=== PATIENT | female | born 1945 | race Caucasian/White ===

== ENCOUNTER 2022-04-06 11:52 | Outpatient (CLI) | payer MEDICARE, SELFPAY | END 2022-04-06 11:53 | disposition home or self-care (01) | PROVIDERS: PCP Family Medicine; Visit Provider Family Medicine | DX: Z01.818 Encounter for other preprocedural examination (principal); R03.0 Elevated blood-pressure reading, without diagnosis of hypertension | CPT/HCPCS: 80053; 80061 ==

== ENCOUNTER 2022-05-19 12:30 | Outpatient (RCR) | payer MEDICARE, SELFPAY | END 2022-08-24 23:59 | disposition home or self-care (01) | PROVIDERS: PCP Family Medicine; Visit Provider Orthopaedic Surgery Hand Surgery | DX: M79.643 Pain in unspecified hand (principal); Z51.89 Encounter for other specified aftercare | CPT/HCPCS: 97035; 97110; 97140; 97165; X5282 ==

== ENCOUNTER 2023-02-09 10:32 | Inpatient (IN) | payer MEDICARE, SELFPAY ==
[2023-02-09] VITALS (27 sets, daily range): BP systolic 124–160; BP diastolic 84–119; PULSE 87–142; RESP 18–20; TEMP 36.9–37.5; O2SAT 87–95; BMI 17.9; BMI 17.4
--- NOTE | 2023-02-09 11:11 | ED.GENADULT ---
HPI - General Adult General Chief complaint: Shortness of Breath/Dyspnea Stated complaint: trouble breathing Time Seen by Provider: 02/09/23 11:05 History of Present Illness HPI narrative: Cough, congestion, body aches started . Patient continues to feel short of breath. Negative home covid tests. Taking dayquil with some relief. Everyday smoker . 77-year-old woman presenting to the emergency department with complaint of increasing shortness of breath, particularly exertional. She has done negative home COVID test. Began feeling more short of breath she realized around Christmastime. Very winded with rapid heart rate trying to go upstairs. Did have some body aches beginning around [place] as well. Did not measure fever. Underlying history of nicotine dependence and breast cancer status post left breast mastectomy. Has not been having lower extremity swelling or edema. No chest pain. I note initial EKG with tachycardia might be atrial flutter; this sounds unfamiliar to her historically. Related Data Previous Rx's Medication Instructions Recorded apixaban 5 mg tablet (Eliquis) 5 mg PO BID #180 tabs 02/15/23 metoprolol tartrate 50 mg tablet 75 mg (1.5 x 50 mg) PO BID #180 02/15/23 tabs Allergies Allergy/AdvReac Type Severity Reaction Status Date / Time No Known Drug Allergies Allergy Verified 02/15/23 11:16 Review of Systems Status of ROS: Reports: 6 or more systems reviewed and unremarkable except as noted in History and below [facility] Medical History (Updated 02/19/23 @ 00:01 by Background Daemon) Alcohol abuse (02/2023) ?F10.10 - Alcohol abuse, uncomplicated (ICD-10) Tobacco dependence ?F17.200 - Nicotine dependence, unspecified, uncomplicated (ICD-10) History of malignant neoplasm of breast ?Z85.3 - Personal history of malignant neoplasm of breast (ICD-10) History of cervical dysplasia ?Z87.410 - Personal history of cervical dysplasia (ICD-10) Encounter for pre-operative examination ?Z01.818 - Encounter for other preprocedural examination (ICD-10) Encounter for counseling regarding advance directives (02/12/18) ?Z71.89 - Other specified counseling (ICD-10) Breast cancer ?C50.919 - Malignant neoplasm of unspecified site of unspecified female breast (ICD-10) Surgical History (Updated 02/15/23 @ 12:23 by Esha Diaz MD) H/O total hip arthroplasty ?Z96.649 - Presence of unspecified artificial hip joint (ICD-10) H/O bilateral breast implants (~2000) ?Z98.82 - Breast implant status (ICD-10) History of total hysterectomy with bilateral salpingo-oophorectomy (BSO) (~1998) ?Z90.710 - Acquired absence of both cervix and uterus (ICD-10) ?Z90.722 - Acquired absence of ovaries, 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) ?Z90.79 - Acquired absence of other genital organ(s) (ICD-10) History of total right hip replacement (~2006) ?Z96.641 - Presence of right artificial hip joint (ICD-10) History of total left hip replacement (12/13/16) ?Z96.642 - Presence of left artificial hip joint (ICD-10) H/O left mastectomy (1999) ?Z90.12 - Acquired absence of left breast and nipple (ICD-10) Family History (Updated 02/15/23 @ 12:24 by Esha Diaz MD) Brother Skin cancer Son Diabetes Social History (Updated 02/15/23 @ 12:25 by Esha Diaz MD) Narrative: , retired from [employer], 2 adult children Does not exercise Ex-smoker quit a week ago, over 25 pack years Drinks 10 drinks a week, was advised to cut down What is your current living situation?: I presently have a place to live Problems where you live: no known problems Problems where you live details: N/A In the past 12 months, utilities in danger of being shut off: no In past 12 months, lack of transportation kept you from medical appts, meetings, work, or getting things needed for daily living: no In the past 12 mos, have been you worried that your food would run out before you had money to buy more?: never true In the past 12 mos, the food you bought just didn't last and you didn't have money to buy more?: never true Smoking Status: Current every day smoker What tobacco products do you use: cigarettes Smoking packs per day: 1 Smoking cigarettes per day: 20.0 How often do you have a drink containing alcohol: 2-3 times a week Alcohol type: hard liquor How many standard drinks containing alcohol do you have on a typical day: 1 or 2 AUDIT-C Alcohol total score: 3 Non-prescribed substance use: denies use Caffeine: Yes How often does anyone, including family, friends and others, physically hurt you: never How often does anyone, including family, friends and others, insult or talk down to you: never How often does anyone, including family, friends and others, threaten you with harm: never How often does anyone, including family, friends and others, scream or curse at you: never service: No Exam Narrative: Exam Narrative: Pleasant. Seems little tired. Small stature. Skin is warm and dry. Well-perfused peripherally. Lower extremities are without edema. Is moving all extremities without difficulty/with good strength. Oropharynx is hyperemic. Sticky. Lungs with good air movement. There is end-expiratory rhonchi throughout the right back/chest. Heart is tachycardic generally appears to be in regular rhythm with some ectopic beats. Abdomen is flat soft nontender. Const: Vital Signs, click to edit/add: Vital Signs - 24 hr 02/09/23 10:50 02/09/23 11:05 02/09/23 12:16 Temperature 99.5 F Pulse Rate 142 H 136 H Pulse Rate [Pulse Oximeter] 124 H Respiratory Rate 18 Blood Pressure Blood Pressure [Ri ght Upper Arm] 150/97 H Pulse Oximetry 90 87 L 92 Oxygen Delivery Me thod Room Air 02/09/23 12:17 02/09/23 12:30 02/09/23 12:45 Temperature Pulse Rate 130 H 132 H 126 H Pulse Rate [Pulse Oximeter] Respiratory Rate Blood Pressure 155/119 H Blood Pressure [Ri ght Upper Arm] Pulse Oximetry 95 93 89 Oxygen Delivery Me thod 02/09/23 13:00 02/09/23 13:13 02/09/23 13:14 Temperature Pulse Rate 119 H 128 H 123 H Pulse Rate [Pulse Oximeter] Respiratory Rate Blood Pressure 160/102 H Blood Pressure [Ri ght Upper Arm] Pulse Oximetry 92 93 92 Oxygen Delivery Wi thod 02/09/23 13:15 02/09/23 13:32 02/09/23 13:45 Temperature Pulse Rate 126 H 126 H 126 H Pulse Rate [Pulse Oximeter] Respiratory Rate Blood Pressure Blood Pressure [Ri ght Upper Arm] Pulse Oximetry 92 91 94 Oxygen Delivery Me thod 02/09/23 14:00 02/09/23 14:01 Temperature Pulse Rate 96 110 H Pulse Rate [Pulse Oximeter] Respiratory Rate Blood Pressure 145/95 H Blood Pressure [Ri ght Upper Arm] Pulse Oximetry 93 93 Oxygen Delivery Me thod Documenting provider has reviewed patient's vital signs: yes Course Vital Signs Vital signs: Initial Vital Signs Temperature 99.5 F 02/09/23 10:50 Temperature Source Temporal Artery Scan 02/09/23 10:50 Pulse Rate 124 H 02/09/23 10:50 Pulse Rhythm Irregular 02/09/23 10:50 Respiratory Rate 18 02/09/23 10:50 Blood Pressure 150/97 H 02/09/23 10:50 Blood Pressure Mean 114 H 02/09/23 10:50 Blood Pressure Position Sitting 02/09/23 10:50 Pulse Oximetry 90 02/09/23 10:50 Oxygen Delivery Method Room Air 02/09/23 10:50 Vital Signs Temperature 99.5 F 02/09/23 10:50 Pulse Rate 124 H 02/09/23 10:50 Respiratory Rate 18 02/09/23 10:50 Blood Pressure 150/97 H 02/09/23 10:50 Pulse Oximetry 90 02/09/23 10:50 Oxygen Delivery Method Room Air 02/09/23 10:50 Temperature 98.2 F 02/11/23 07:00 Pulse Rate 100 02/11/23 07:00 Respiratory Rate 18 02/11/23 07:00 Blood Pressure 119/87 02/11/23 07:00 Pulse Oximetry 93 02/11/23 07:00 Oxygen Delivery Method Room Air 02/11/23 07:00 Medications Administered Medications: Discontinued Medications Generic Name Dose Route Start Last Admin Trade Name Freq PRN Reason Stop Dose Admin Albuterol 2.5 mg 02/09/23 17:00 02/11/23 08:41 Albuterol Sulfate 2.5 Mg/3 Ml Vial.Neb NEB 2.5 mg Q4H WILBER Administration Apixaban 5 mg 02/09/23 17:00 02/11/23 08:41 Apixaban 5 Mg Tablet PO 5 mg BID WILBER Administration Azithromycin 500 mg 02/09/23 14:22 02/09/23 15:00 Azithromycin 250 Mg Tablet PO 02/09/23 14:23 500 mg ONCE ONE Administration Azithromycin 250 mg 02/10/23 14:00 02/10/23 13:59 Azithromycin 250 Mg Tablet PO 02/13/23 14:01 250 mg Q24H WILBER Administration Sodium Chloride 1,000 mls @ 1,000 mls/hr 02/09/23 11:22 02/09/23 13:40 0.9 % Sodium Chloride 1000 Ml IV 02/09/23 12:21 Infused .Q1H ONE Infusion Potassium Chloride 10 meq in 100 mls @ 100 mls/hr 02/09/23 14:00 02/09/23 14:54 Potassium Chloride IVPB 02/09/23 14:59 100 mls/hr ONCE ONE Administration Magnesium Sulfate 2 gm in 50 mls @ 25 mls/hr 02/09/23 13:45 02/09/23 14:32 Magnesium Iv IVPB 02/09/23 15:44 25 mls/hr ONCE ONE Administration Ceftriaxone Sodium 1 gm/ 100 mls @ 200 mls/hr 02/09/23 14:22 02/09/23 15:44 Sodium Chloride IVPB 02/09/23 14:23 Infused ONCE ONE Infusion Ceftriaxone Sodium 1 gm/ 100 mls @ 200 mls/hr 02/10/23 14:00 02/10/23 13:59 Sodium Chloride IVPB 200 mls/hr Q24H WILBER Administration Labetalol HCl 5 mg 02/09/23 13:23 02/09/23 13:44 Labetalol Hcl 5 Mg/Ml Inj IVP 02/09/23 13:24 5 mg ONCE ONE Administration Melatonin 3 mg 02/09/23 16:43 02/11/23 00:29 Melatonin 3 Mg Tablet PO 3 mg HS PRN Administration Metoprolol Tartrate 50 mg 02/09/23 21:00 02/10/23 08:45 Metoprolol Tartrate 50 Mg Tablet PO 50 mg BID WILBER Administration Metoprolol Tartrate 50 mg 02/09/23 16:43 02/09/23 17:05 Metoprolol Tartrate 50 Mg Tablet PO 02/09/23 16:44 50 mg ONCE ONE Administration Metoprolol Tartrate 75 mg 02/10/23 21:00 02/11/23 08:41 Metoprolol Tartrate 50 Mg Tablet PO 75 mg BID WILBER Administration Metoprolol Tartrate 25 mg 02/10/23 10:43 02/10/23 12:49 Metoprolol Tartrate 25 Mg Tablet PO 02/10/23 10:44 25 mg ONCE ONE Administration Nicotine 1 patch 02/09/23 18:15 02/10/23 18:04 Nicotine 21 Mg Patch TRANSDERMA Not Given Q24H WILBER Potassium Bicarbonate 25 meq 02/09/23 13:42 02/09/23 14:19 Potassium Bicarb 25 Meq Effervescent Tab PO 02/09/23 13:43 25 meq ONCE ONE Administration Potassium Chloride 40 meq 02/09/23 18:02 02/09/23 18:33 Potassium Chloride 10 Meq Capsule Er PO 02/09/23 18:03 40 meq ONCE ONE Administration Sodium Chloride 5 ml 02/09/23 21:00 02/11/23 08:41 Sodium Chloride 0.9 % (Flush) 10 Ml Syringe IVF 5 ml BID WILBER Administration Medical Decision Making MDM Narrative Medical decision making narrative: Vitals with tachycardia on arrival. EKG looks to be quite regular to maybe atrial flutter but I think that is more artifact. Second EKG showing some suggestion of P waves. Rate of 130s to 140s. I would suspect that this tachycardia represents underlying infectious etiology, pneumonia, given reported history. Will collect labs. Monitor on monitoring coordinator. List smoking and cancer history, pulmonary embolus certainly in differential as cause of this tachycardia as well. IV fluids. Following IV fluids have reviewed CT imaging of the chest. Looks to have multifocal pneumonia on the right side. INDICATION: New flutter, hypoxia. TECHNIQUE: CT chest PE was acquired with 95 cc Isovue 370 IV contrast. COMPARISON: None. FINDINGS: Heart and vasculature: Contrast opacification of the pulmonary arterial tree is adequate. No sign of pulmonary embolism. Heart size is normal. Thoracic aorta and pulmonary artery are normal in caliber. Lungs and pleura: Right lower lobe basilar mucous plugging with right basilar patchy ground-glass opacities. Left lower lobe collapse. No pleural effusions, pleural thickening, or pneumothorax. Lymph nodes/mediastinum: No mediastinal, hilar, or axillary adenopathy. Thyroid gland is unremarkable. Chest wall: No masses. Bilateral breast implants. Upper abdomen: No acute findings. Bones: Degenerative changes. T8 intraosseous hemangioma. IMPRESSION: 1. No evidence of pulmonary embolism. 2. Right lower lobe postobstructive pneumonia. 3. Left lower lobe collapse, which may be secondary to mucous plugging however underlying lesion is not excluded. Recommend short-term follow-up chest CT for re-evaluation. EKG after 5 mg labetalol and IV fluids able to obtain a slower rate around 100 and looks to be in atrial fibrillation. This would be of uncertain duration. Labs with mildly elevated white count. More notable for hypokalemia of 2.8 magnesium of 1.5 CRP of 20. Moderately elevated D-dimer as well. Replaced with oral potassium and IV bump of potassium. Also initiated on magnesium replacement Initiating antibiotic treatment with Rocephin and azithromycin With this constellation symptoms/diagnoses would be prudent to admit for further monitoring cares and evaluation. I have discussed with hospitalist. Medical Records Medical records reviewed: Yes I reviewed the patient's medical records Lab Data Lab results reviewed: Yes I reviewed the patient's lab results Labs: Lab Results 02/09/23 02/09/23 02/09/23 Range/Units 05:15 12:09 17:04 WBC 12.59 H (4.50-11.00) K/uL RBC 4.27 (4.00-5.20) m/uL Hgb 15.0 (12.0-16.0) gm/dL Hct 43.4 (33.0-51.0) % MCV 102 H (80-100) fL MCH 35 H (26-34) pg MCHC 35 (32-36) gm/dL RDW Coeff of Nacho 12.5 (11.5-15.5) % Plt Count 358 (140-440) K/uL Neut % (Auto) 88.9 H (42.0-72.0) % Lymph % (Auto) 3.2 L (20-44) % Villalba % (Auto) 7.3 (0.0-11.0) % Eos % (Auto) 0.0 (0.0-7.0) % Baso % (Auto) 0.2 (0.0-3.0) % Neut # (Auto) 11.20 H (1.7-7.0) K/uL Lymph # (Auto) 0.40 L (0.90-2.90) K/uL Villalba # (Auto) 0.90 (0.00-0.90) K/UL Eos # (Auto) 0.00 (0.00-0.50) K/uL Baso # (Auto) 0.00 (0.00-0.30) K/uL Abs Immat Gran (auto) 0.10 (0.00-0.30) K/uL Imm/Tot Granulo (auto) 0.4 % D-Dimer Quant (PE/DVT) 1.73 H (0.00-0.50) ug/ml VBG pH (7.32-7.43) VBG pCO2 (40-50) mmHG VBG pO2 (25-47) mmHG VBG HCO3 (21-28) mmol/L Sodium 131 L (135-149) mmol/L Potassium 2.8 L* 3.4 L (3.6-5.1) mmol/L Chloride 91 L (96-114) mmol/L Carbon Dioxide 33 H (20-32) mmol/L Anion Gap 7 (7-15) mEq/L BUN 7 (7-30) mg/dL Creatinine 0.3 L (0.5-1.5) mg/dL Estimated Creat Clear 43.51 Estimated GFR 111 ml/min Glucose 117 H (60-115) mg/dL Lactate 1.3 (0.5-1.9) mmol/L Calcium 9.3 (8.4-10.6) mg/dL Phosphorus (2.5-4.5) mg/dL Magnesium 1.5 (1.5-2.6) mg/dL Total Bilirubin 1.8 H (0.1-1.5) mg/dL Direct Bilirubin 0.5 (0.0-0.5) mg/dL AST 16 (12-35) U/L ALT 9 (4-35) U/L Alkaline Phosphatase 81 (40-150) U/L Troponin I < 0.01 L (0.01-0.04) ng/mL C-Reactive Protein 20.1 H (0.5-1.0) mg/dL NT-Pro-B Natriuret Pep 2430 pg/mL Total Protein 7.3 (6.0-8.3) g/dL Albumin 3.9 (3.3-5.0) g/dL Lipase 54 (23-300) U/L Procalcitonin (<0.50) ng/mL TSH 0.644 (0.270-4.20) uIU/mL Stl C. diff Tox B Gene Negative (Negative) Stl C. diff 027-NAP1-BI PRESUMPTIVE NEGATIVE (Negative) Ethyl Alcohol < 0.01 L (0.01-0.03) % SARS-CoV-2 (PCR) Negative SARS-CoV-2 (Negative) Influenza Type A (PCR) Negative PCR FLU A (Negative) Influenza Type B (PCR) Negative PCR FLU B (Negative) RSV (PCR) Negative PCR RSV (Negative) Lab Acknowledgement 02/09/23 02/10/23 Range/Units 18:59 05:44 WBC 7.85 (4.50-11.00) K/uL RBC 3.41 L (4.00-5.20) m/uL Hgb 12.4 (12.0-16.0) gm/dL Hct 35.1 (33.0-51.0) % MCV 103 H (80-100) fL MCH 36 H (26-34) pg MCHC 35 (32-36) gm/dL RDW Coeff of Nacho (11.5-15.5) % Plt Count 342 (140-440) K/uL Neut % (Auto) (42.0-72.0) % Lymph % (Auto) (20-44) % Villalba % (Auto) (0.0-11.0) % Eos % (Auto) (0.0-7.0) % Baso % (Auto) (0.0-3.0) % Neut # (Auto) (1.7-7.0) K/uL Lymph # (Auto) (0.90-2.90) K/uL [place] # (Auto) (0.00-0.90) K/UL Eos # (Auto) (0.00-0.50) K/uL Baso # (Auto) (0.00-0.30) K/uL Abs Immat Gran (auto) (0.00-0.30) K/uL Imm/Tot Granulo (auto) % D-Dimer Quant (PE/DVT) (0.00-0.50) ug/ml VBG pH 7.499 H (7.32-7.43) VBG pCO2 39 L (40-50) mmHG VBG pO2 56.3 H (25-47) mmHG VBG HCO3 31 H (21-28) mmol/L Sodium 128 L (135-149) mmol/L Potassium 3.6 (3.6-5.1) mmol/L Chloride 94 L (96-114) mmol/L Carbon Dioxide 27 (20-32) mmol/L Anion Gap 7 (7-15) mEq/L BUN 6 L (7-30) mg/dL Creatinine 0.3 L (0.5-1.5) mg/dL Estimated Creat Clear 41.73 Estimated GFR 111 ml/min Glucose 107 (60-115) mg/dL Lactate 0.9 (0.5-1.9) mmol/L Calcium 8.5 (8.4-10.6) mg/dL Phosphorus 2.9 (2.5-4.5) mg/dL Magnesium 1.6 (1.5-2.6) mg/dL Total Bilirubin (0.1-1.5) mg/dL Direct Bilirubin (0.0-0.5) mg/dL AST (12-35) U/L ALT (4-35) U/L Alkaline Phosphatase (40-150) U/L Troponin I < 0.01 L (0.01-0.04) ng/mL C-Reactive Protein 17.9 H (0.5-1.0) mg/dL NT-Pro-B Natriuret Pep 4190 pg/mL Total Protein (6.0-8.3) g/dL Albumin (3.3-5.0) g/dL Lipase (23-300) U/L Procalcitonin 0.36 (<0.50) ng/mL TSH (0.270-4.20) uIU/mL Stl C. diff Tox B Gene (Negative) Stl C. diff 027-NAP1-BI (Negative) Ethyl Alcohol (0.01-0.03) % SARS-CoV-2 (PCR) (Negative) Influenza Type A (PCR) (Negative) Influenza Type B (PCR) (Negative) RSV (PCR) (Negative) Lab Acknowledgement Test Added Critical Care Time Critical Care Time Critical Care Time: Yes Attestation: The patient required my highest level preparedness to intervene emergently and I personally spent this critical care time directly and personally managing the patient. This critical care time included: Obtaining a history; Examining the patient; Pulse oximetry; Ordering and reviewing of studies; Arranging urgent treatment with development of a management plan; Evaluation of patients response to treatment; Frequent reassessment discussions with other providers. This critical care time was performed to assess and manage the high probability of imminent life-threatening deterioration that could result in multiorgan failure. It was exclusive of separate billable procedures and treating other patients and teaching time. Total Critical Care Time in Minutes: 60 Discharge Plan Discharge Clinical Impression: Atrial fibrillation with RVR Pneumonia Qualifiers: Pneumonia type: due to unspecified organism Laterality: right Lung location: lower lobe of lung Qualified Code(s): J18.9 - Pneumonia, unspecified organism Patient Disposition: Admitted As Observation Condition: Stable Activity Level: No Restrictions Discharge Diet: Regular
[2023-02-09] MEDS: 0.9 % SODIUM CHLORIDE 1000 ml 1,000 ML IV (12:10)
[2023-02-09 12:24] LABS: Basophils Percent Auto 0.2 % (0.0-3.0); Hematocrit 43.4 % (33.0-51.0); Immature Granulocytes Pct Auto 0.4 %; Lymphocytes Percent Auto 3.2 % (20-44); Mean Corpuscular HGB Conc 35 gm/dL (32-36); Mean Corpuscular Hemoglobin 35 pg (26-34); Mean Corpuscular Volume 102 fL (80-100); Monocytes Percent Auto 7.3 % (0.0-11.0); Neutrophils Percent Auto 88.9 % (42.0-72.0); Platelet Count* 358 K/uL (140-440); RDW Coefficient of Variation % 12.5 % (11.5-15.5); Red Blood Count 4.27 m/uL (4.00-5.20); White Blood Count* 12.59 K/uL (4.50-11.00)
[2023-02-09 12:41] LABS: Chloride* 91 mmol/L (96-114); Sodium* 131 mmol/L (135-149)
[2023-02-09 12:44] LABS: Creatinine* 0.3 mg/dL (0.5-1.5); Est. Creatinine Clearance* 43.51; Estimated Glomerular Filt Rate 111 ml/min
[2023-02-09 12:45] LABS: Albumin* 3.9 g/dL (3.3-5.0); Anion Gap 7 mEq/L (7-15); Blood Urea Nitrogen* 7 mg/dL (7-30); Calcium* 9.3 mg/dL (8.4-10.6); Carbon Dioxide* 33 mmol/L (20-32); D Dimer Quantitative* 1.73 ug/ml (0.00-0.50); Glucose* 117 mg/dL (60-115)
[2023-02-09 12:46] LABS: Slide Review Reflex No
[2023-02-09 12:48] LABS: Alanine Aminotransferase* 9 U/L (4-35); Alkaline Phosphatase* 81 U/L (40-150); Aspartate Amino Transferase* 16 U/L (12-35); Bilirubin Direct* 0.5 mg/dL (0.0-0.5); Bilirubin Total* 1.8 mg/dL (0.1-1.5); Magnesium* 1.5 mg/dL (1.5-2.6); Total Protein* 7.3 g/dL (6.0-8.3)
[2023-02-09 12:54] LABS: Ethanol* < 0.01 % (0.01-0.03); NT Pro B Type NatriureticPept* 2430 pg/mL
[2023-02-09 12:55] LABS: Potassium* 2.8 mmol/L (3.6-5.1)
--- NOTE | 2023-02-09 12:58 | CRLHL7_ITS ---
For Patients: As a result of the Century Cures Act, medical imaging exams and procedure reports are released immediately into your electronic medical record. You may view this report before your referring provider. If you have questions, please contact your health care provider. INDICATION: New flutter, hypoxia. TECHNIQUE: CT chest PE was acquired with 95 cc Isovue 370 IV contrast. COMPARISON: None. FINDINGS: Heart and vasculature: Contrast opacification of the pulmonary arterial tree is adequate. No sign of pulmonary embolism. Heart size is normal. Thoracic aorta and pulmonary artery are normal in caliber. Lungs and pleura: Right lower lobe basilar mucous plugging with right basilar patchy ground-glass opacities. Left lower lobe collapse. No pleural effusions, pleural thickening, or pneumothorax. Lymph nodes/mediastinum: No mediastinal, hilar, or axillary adenopathy. Thyroid gland is unremarkable. Chest wall: No masses. Bilateral breast implants. Upper abdomen: No acute findings. Bones: Degenerative changes. T8 intraosseous hemangioma. IMPRESSION: 1. No evidence of pulmonary embolism. 2. Right lower lobe postobstructive pneumonia. 3. Left lower lobe collapse, which may be secondary to mucous plugging however underlying lesion is not excluded. Recommend short-term follow-up chest CT for re-evaluation. Please note that all CT scans at this facility use dose modulation, iterative reconstruction, and/or weight-based dosing when appropriate to reduce radiation dose to as low as reasonably achievable. Dictated by Oscar Freitas MD @ 02/09/2023 2:39:28 PM (Electronically Signed)
[2023-02-09 13:06] LABS: C Reactive Protein* 20.1 mg/dL (0.5-1.0)
[2023-02-09 13:15] LABS: PCR FLU A Negative PCR FLU A (Negative); PCR FLU B Negative PCR FLU B (Negative); PCR RSV Negative PCR RSV (Negative)
[2023-02-09 13:16] LABS: SARS PCR* Negative SARS-CoV-2 (Negative)
[2023-02-09 13:30] LABS: Thyroid Stimulating Hormone* 0.644 uIU/mL (0.270-4.20)
[2023-02-09] MEDS: LABETALOL HCL 5 MG/ML inj IVP (13:44)
[2023-02-09] MEDS: POTASSIUM BICARB 25 MEQ EFFERVESCENT TAB PO (14:19)
[2023-02-09] MEDS: MAGNESIUM IV 2 GM/50 ML PIGGYBACK IVPB (14:32)
[2023-02-09] MEDS: POTASSIUM CHLORIDE 10 MEQ/100 ML PIGGYBACK 100 MEQ IVPB (14:54)
[2023-02-09] MEDS: AZITHROMYCIN 250 MG TABLET 500 MG PO (15:00)
[2023-02-09] MEDS: cefTRIAXone 1 GM in 0.9 % SODIUM CHLORIDE Mini-bag 100 ML IVPB (15:07)
--- NOTE | 2023-02-09 16:19 | ED.NURSE ---
Report to MARIVEL Tadeo. Patient accepted to [id number].
[2023-02-09] MEDS: ALBUTEROL SULFATE 2.5 MG/3 ML VIAL.NEB NEB ×2 (17:05→21:51)
[2023-02-09] MEDS: METOPROLOL TARTRATE 50 MG TABLET PO ×2 (17:05→21:50)
[2023-02-09 17:08] LABS: Lactate* 1.3 mmol/L (0.5-1.9)
[2023-02-09] MEDS: APIXABAN 5 MG TABLET PO (17:08)
[2023-02-09 17:29] LABS: Potassium* 3.4 mmol/L (3.6-5.1)
--- NOTE | 2023-02-09 17:43 | PM.IMHP1 ---
Hospitalist- H&P: HPI History of Present Illness Date Seen: 02/09/23 Chief complaint: trouble breathing Narrative: Monae Leach is a 77 year old woman presents to the emergency department with 2 week history of increasing dyspnea with exertion, weakness, decreased oral intake, decreased appetite. Unclear she had a fever. She never measured a fever. May have felt feverish at times during this time frame. Continues to smoke roughly 1 pack per day of cigarettes. Denies chest heaviness, pressure, tightness, or pain. Denies syncope or near-syncope. Denies nausea or vomiting. Acknowledges decreased oral intake, subsiding on chicken noodle soup and drinking water. Has decreased her cigarette smoking. Has decreased her alcohol consumption. Denies chest fluttering or palpitations. Notes maybe increased bilateral lower extremity edema. Review of Systems Status of ROS: Reports: 10 or more systems reviewed and unremarkable except as noted in History and below [facility] Medical History (Updated 02/09/23 @ 17:59 by Sagar Valera MD) Alcohol abuse ?F10.10 - Alcohol abuse, uncomplicated (ICD-10) Tobacco dependence ?F17.200 - Nicotine dependence, unspecified, uncomplicated (ICD-10) History of malignant neoplasm of breast ?Z85.3 - Personal history of malignant neoplasm of breast (ICD-10) History of cervical dysplasia ?Z87.410 - Personal history of cervical dysplasia (ICD-10) Encounter for pre-operative examination ?Z01.818 - Encounter for other preprocedural examination (ICD-10) Encounter for counseling regarding advance directives (02/12/18) ?Z71.89 - Other specified counseling (ICD-10) Breast cancer ?C50.919 - Malignant neoplasm of unspecified site of unspecified female breast (ICD-10) Surgical History H/O total hip arthroplasty ?Z96.649 - Presence of unspecified artificial hip joint (ICD-10) History of mastectomy ?Z90.10 - Acquired absence of unspecified breast and nipple (ICD-10) H/O bilateral breast implants ?Z98.82 - Breast implant status (ICD-10) History of total hysterectomy with bilateral salpingo-oophorectomy (BSO) (~1998) ?Z90.710 - Acquired absence of both cervix and uterus (ICD-10) ?Z90.722 - Acquired absence of ovaries, 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) ?Z90.79 - Acquired absence of other genital organ(s) (ICD-10) History of total right hip replacement (~2006) ?Z96.641 - Presence of right artificial hip joint (ICD-10) History of total left hip replacement (12/13/16) ?Z96.642 - Presence of left artificial hip joint (ICD-10) H/O left mastectomy ?Z90.12 - Acquired absence of left breast and nipple (ICD-10) Family History Family/Other Diabetes Social History Narrative: Smoker 1ppd Does not use illicit drugs Alcohol ingestion, 1-4 drinks/week Smoking Status: Current every day smoker What tobacco products do you use: cigarettes Smoking packs per day: 1 Smoking cigarettes per day: 20.0 How often do you have a drink containing alcohol: 2-3 times a week AUDIT-C Alcohol total score: 3 Non-prescribed substance use: denies use Meds Home Medications and Allergies Home Medications Medication Instructions Recorded Confirmed Type No Known Home Medications 02/09/23 02/09/23 History Allergies Allergy/AdvReac Type Severity Reaction Status Date / Time No Known Drug Allergies Allergy Verified 02/09/23 10:50 Exam Narrative: Exam Narrative: Examined patient in the emergency department. Appears comfortable. Vision and hearing are grossly normal. Alert and oriented to self, place, time, situation. From the, articulate, cooperative. Tympanic membranes normal bilaterally. Midline nasal septum. Dentition in fair repair. Dry buccal mucosa. Midline trachea. Neck supple. No head neck lymphadenopathy. Lungs with decreased breath sounds in both bases with rales in the right compared to the left. No wheezing or rhonchi. Chest wall excursions are full. Heart tones with chaotic rhythm, normal S1-S2, soft systolic murmur. No gallop or rub. PMI not laterally displaced. Abdomen is thin, active bowel sounds, soft, nontender. Trace edema pretibially bilaterally otherwise extremities unremarkable. Palpable pulses upper and lower extremities. Moves all 4 extremities. Cranial nerves 3-12 grossly normal. No tremor, asterixis, or ataxia. Skin is intact. Const: Vital Signs, click to edit/add: Vital Signs - 24 hr 02/09/23 10:50 02/09/23 11:05 02/09/23 12:16 Temperature 99.5 F Pulse Rate 142 H 136 H Pulse Rate [Left P ulse Oximeter] Pulse Rate [Pulse Oximeter] 124 H Respiratory Rate 18 Blood Pressure Blood Pressure [Ri ght Arm] Blood Pressure [Ri ght Upper Arm] 150/97 H Pulse Oximetry 90 87 L [facility] 02/09/23 12:17 02/09/23 12:30 02/09/23 12:45 Temperature Pulse Rate 130 H 132 H 126 H Pulse Rate [Left P ulse Oximeter] Pulse Rate [Pulse Oximeter] Respiratory Rate Blood Pressure 155/119 H Blood Pressure [Ri ght Arm] Blood Pressure [Ri ght Upper Arm] Pulse Oximetry 95 93 89 [facility] 02/09/23 13:00 02/09/23 13:13 02/09/23 13:14 Temperature Pulse Rate 119 H 128 H 123 H Pulse Rate [Left P ulse Oximeter] Pulse Rate [Pulse Oximeter] Respiratory Rate Blood Pressure 160/102 H Blood Pressure [Ri ght Arm] Blood Pressure [Ri ght Upper Arm] Pulse Oximetry 92 93 92 [facility] 02/09/23 13:15 02/09/23 13:32 02/09/23 13:45 Temperature Pulse Rate 126 H 126 H 126 H Pulse Rate [Left P ulse Oximeter] Pulse Rate [Pulse Oximeter] Respiratory Rate Blood Pressure Blood Pressure [Ri ght Arm] Blood Pressure [Ri ght Upper Arm] Pulse Oximetry 92 91 94 [facility] 02/09/23 14:00 02/09/23 14:01 02/09/23 14:02 Temperature Pulse Rate 96 110 H 110 H Pulse Rate [Left P ulse Oximeter] Pulse Rate [Pulse Oximeter] Respiratory Rate Blood Pressure 145/95 H Blood Pressure [Ri ght Arm] Blood Pressure [Ri ght Upper Arm] Pulse Oximetry 93 93 92 [facility] 02/09/23 14:15 02/09/23 14:30 02/09/23 14:31 Temperature Pulse Rate 109 H 111 H 106 H Pulse Rate [Left P ulse Oximeter] Pulse Rate [Pulse Oximeter] Respiratory Rate Blood Pressure 151/98 H Blood Pressure [Ri ght Arm] Blood Pressure [Ri ght Upper Arm] Pulse Oximetry 89 93 89 Oxygen Delivery Me thod 02/09/23 14:45 02/09/23 15:00 02/09/23 15:02 Temperature Pulse Rate 102 H 112 H Pulse Rate [Left P ulse Oximeter] Pulse Rate [Pulse Oximeter] Respiratory Rate Blood Pressure 125/95 H Blood Pressure [Ri ght Arm] Blood Pressure [Ri ght Upper Arm] Pulse Oximetry 88 90 Oxygen Delivery Me thod 02/09/23 15:31 02/09/23 16:44 Temperature 99.2 F Pulse Rate Pulse Rate [Left P ulse Oximeter] 119 H Pulse Rate [Pulse Oximeter] Respiratory Rate 18 Blood Pressure 132/98 H Blood Pressure [Ri ght Arm] 145/95 H Blood Pressure [Ri ght Upper Arm] Pulse Oximetry 90 Oxygen Delivery Me thod Room Air Hospitalist - H&P: Result Labs Labs: Short CBC 02/09/23 Range/Units 12:09 WBC 12.59 H (4.50-11.00) K/uL Hgb 15.0 (12.0-16.0) gm/dL Hct 43.4 (33.0-51.0) % Plt Count 358 (140-440) K/uL BMP 02/09/23 12:09 Sodium 131 L Potassium 2.8 L* Chloride 91 L Carbon Dioxide 33 H BUN 7 Creatinine 0.3 L Glucose 117 H Calcium 9.3 Liver Function 02/09/23 Range/Units 12:09 Total Bilirubin 1.8 H (0.1-1.5) mg/dL Direct Bilirubin 0.5 (0.0-0.5) mg/dL AST 16 (12-35) U/L ALT 9 (4-35) U/L Alkaline Phosphatase 81 (40-150) U/L Albumin 3.9 (3.3-5.0) g/dL Imaging CT scan of chest with angiogram: Attestation: I have reviewed the pertinent imaging results. Radiologist's impression: IMPRESSION: 1. No evidence of pulmonary embolism. 2. Right lower lobe postobstructive pneumonia. 3. Left lower lobe collapse, which may be secondary to mucous plugging however underlying lesion is not excluded. Recommend short-term follow-up chest CT for re-evaluation. Assessment and Plan Assessment and plan (1) Atrial fibrillation with RVR: Problem comment: - uncertain of onset. - rate control with beta-nancy, schedule oral, as needed oral and IV - initiate apixaban anticoagulation therapy - monitor on telemetry, EKG, serial troponin i levels Status: Acute (2) Pneumonia: Problem comment: - most likely community-acquired - ceftriaxone IV and azithromycin orally - monitor for O2 needs Status: Acute (3) Pulmonary atelectasis: Problem comment: - repeat chest x-ray in the morning Status: Acute (4) Mucus plugging of bronchi: Problem comment: - scheduled albuterol nebs Status: Acute (5) Tobacco dependence: Problem comment: - Has smoked 1 pack per cigarettes daily for several decades. Status: Acute (6) Alcohol abuse: Problem comment: - Acknowledges drinking 2-3 brandies every 3-4 days - monitor for possible alcohol withdrawal and employ CIWA protocol if warranted Status: Acute Plan 1. Reviewed impression with patient. Answered her questions. 2. Patient agreeable with above stated plans and recommendations.
[2023-02-09 17:50] LABS: Troponin I* < 0.01 ng/mL (0.01-0.04)
[2023-02-09] MEDS: POTASSIUM CHLORIDE 10 MEQ CAPSULE ER 40 MEQ PO (18:33)
[2023-02-09 19:08] LABS: Lipase* 54 U/L (23-300)
--- NOTE | 2023-02-09 20:17 | RESP.RT ---
Patient on room air SATing 93%. Initial Neb done and appears to be breathing better.
[2023-02-09] MEDS: SODIUM CHLORIDE 0.9 % (FLUSH) 10 ML SYRINGE 5 ML IVF (21:53)
[2023-02-10] VITALS (12 sets, daily range): BP systolic 99–142; BP diastolic 65–92; PULSE 86–103; RESP 16–24; TEMP 36.6–36.9; O2SAT 92–95
[2023-02-10] MEDS: MELATONIN 3 MG TABLET PO (01:30)
[2023-02-10] MEDS: ALBUTEROL SULFATE 2.5 MG/3 ML VIAL.NEB NEB ×6 (01:31→21:39)
--- NOTE | 2023-02-10 06:29 | PC.NURSE ---
Patient pleasant, alert and oriented. Ambulates independently in room. PRN Melatonin given as patient could not sleep. Slept in recliner for some of the night. O2 sats 88-93% on RA. Denied pain.?
[2023-02-10 06:31] LABS: Lactate* 0.9 mmol/L (0.5-1.9); PCO2 VBG 39 mmHG (40-50); PO2 VBG 56.3 mmHG (25-47); pH VBG 7.499 (7.32-7.43)
[2023-02-10 06:35] LABS: HCO3 VBG 31 mmol/L (21-28)
[2023-02-10 06:41] LABS: C.Difficile Negative (Negative); CDIFFEPI 027 PRESUMPTIVE NEGATIVE (Negative)
[2023-02-10 06:49] LABS: Chloride* 94 mmol/L (96-114); Sodium* 128 mmol/L (135-149)
[2023-02-10 06:50] LABS: Potassium* 3.6 mmol/L (3.6-5.1)
[2023-02-10 06:52] LABS: Creatinine* 0.3 mg/dL (0.5-1.5); Est. Creatinine Clearance* 41.73; Estimated Glomerular Filt Rate 111 ml/min
[2023-02-10 06:53] LABS: Anion Gap 7 mEq/L (7-15); Blood Urea Nitrogen* 6 mg/dL (7-30); Carbon Dioxide* 27 mmol/L (20-32); Glucose* 107 mg/dL (60-115)
[2023-02-10 06:54] LABS: Calcium* 8.5 mg/dL (8.4-10.6); Magnesium* 1.6 mg/dL (1.5-2.6); Phosphorus* 2.9 mg/dL (2.5-4.5)
[2023-02-10 06:59] LABS: Hematocrit 35.1 % (33.0-51.0); Hemoglobin* 12.4 gm/dL (12.0-16.0); Mean Corpuscular HGB Conc 35 gm/dL (32-36); Mean Corpuscular Hemoglobin 36 pg (26-34); Mean Corpuscular Volume 103 fL (80-100); Platelet Count* 342 K/uL (140-440); Red Blood Count 3.41 m/uL (4.00-5.20); White Blood Count* 7.85 K/uL (4.50-11.00)
--- NOTE | 2023-02-10 07:00 | CRLHL7_ITS ---
For Patients: As a result of the Cures Act, medical imaging exams and procedure reports are released immediately into your electronic medical record. You may view this report before your referring provider. If you have questions, please contact your health care provider. INDICATION: Follow-up abnormal prior imaging COMPARISON: Portions of a CT dated February 09, 2023 TECHNIQUE: Two views of the chest were acquired FINDINGS: TUBES AND LINES: None. HEART AND MEDIASTINUM: Enlarged heart unchanged appearance. LUNGS AND PLEURAL SPACES: Dense opacity at the left base representing left lower lobe atelectasis/collapse similar to the prior study. Right lower lobe consolidation likely representing pneumonia or aspiration.Similar to the prior exam. OSSEOUS STRUCTURES: Age-appropriate appearance. No acute focal finding. IMPRESSION: Dense opacity at the left base representing left lower lobe atelectasis/collapse, unchanged. Right lower lobe consolidation likely representing pneumonia, unchanged. Unchanged enlargement of the heart. Dictated by Jesus Palencia MD @ 02/10/2023 7:10:29 AM (Electronically Signed)
[2023-02-10 07:09] LABS: Procalcitonin* 0.36 ng/mL (<0.50)
[2023-02-10 07:27] LABS: Slide Review Reflex No
[2023-02-10 07:31] LABS: C Reactive Protein* 17.9 mg/dL (0.5-1.0); NT Pro B Type NatriureticPept* 4190 pg/mL; Troponin I* < 0.01 ng/mL (0.01-0.04)
[2023-02-10] MEDS: APIXABAN 5 MG TABLET PO ×2 (08:45→21:38)
[2023-02-10] MEDS: METOPROLOL TARTRATE 50 MG TABLET PO (08:45)
[2023-02-10] MEDS: SODIUM CHLORIDE 0.9 % (FLUSH) 10 ML SYRINGE 5 ML IVF ×2 (10:17→21:40)
[2023-02-10] MEDS: METOPROLOL TARTRATE 25 MG TABLET PO (12:49)
[2023-02-10] MEDS: cefTRIAXone 1 GM in 0.9 % SODIUM CHLORIDE Mini-bag 100 ML IVPB (13:59)
[2023-02-10] MEDS: AZITHROMYCIN 250 MG TABLET PO (13:59)
--- NOTE | 2023-02-10 17:12 | PM.IMPN1 ---
Progress Note: A&P Assessment and plan (1) Atrial fibrillation with RVR: Problem details: - uncertain of onset. - rate control with beta-nancy, schedule oral, as needed oral and IV - initiated apixaban anticoagulation therapy 02/09 - 02/10: Resting HR is about 103. I have increased oral metoprolol dose. Continue to monitor on telemetry. Goal resting heart rate is less than 100, goal active heart rate is less than 110. Status: Acute (2) Pneumonia: Problem details: - CTA from yesterday notes right lower lobe postobstructive pneumonia. Will need short-term outpatient follow-up for repeat chest imaging. - continue ceftriaxone IV and azithromycin orally - monitor for O2 needs Status: Acute (3) Pulmonary atelectasis: Problem details: - unchanged, concerning for possibility of underlying lesion, will need outpatient short-term follow-up chest imaging Status: Acute (4) Alcohol abuse: Problem details: - Acknowledges drinking 2-3 brandies every 3-4 days - monitor for possible alcohol withdrawal and employ CIWA protocol if warranted - I have recommended abstinence in setting of need for anticoagulation for atrial fibrillation. Patient demonstrated understanding. Status: Acute (5) Tobacco dependence: Problem details: - Has smoked 1 pack per cigarettes daily for several decades. Status: Acute (6) Mucus plugging of bronchi: Problem details: - scheduled albuterol nebs Status: Acute Subjective Time Seen by Provider: 11:33 Date Seen: 02/10/23 Interval history: Monae is feeling better today. Dyspnea is improving. She has no complaints. Exam Narrative: Exam Narrative: General: No acute distress. Awake, alert, oriented x3. No pallor. No jaundice. Oropharynx: Clear. Mucous membranes moist. Cardiovascular: Irregularly irregular, mildly tachycardic. No murmurs, gallops, or rubs. Respiratory: Coarse in the right base of the lungs without crackles or wheezes. Abdomen: Bowel sounds present. Soft, nondistended, nontender. Extremities: No pedal edema. Const: Vital Signs, click to edit/add: Vital Signs - 24 hr 02/09/23 18:03 02/09/23 19:00 02/09/23 22:09 Temperature 98.7 F 98.4 F Pulse Rate Pulse Rate [Left P ulse Oximeter] 101 H 101 H Respiratory Rate 20 20 20 Blood Pressure [Ri ght Arm] 124/84 131/95 H Pulse Oximetry 90 93 93 Oxygen Delivery Me thod Room Air Room Air Room Air 02/09/23 23:00 02/09/23 23:00 02/10/23 02:37 Temperature 98.5 F Pulse Rate 87 Pulse Rate [Left P ulse Oximeter] 97 Respiratory Rate 20 24 Blood Pressure [Ri ght Arm] 142/92 H Pulse Oximetry 93 92 Oxygen Delivery Me thod Room Air Room Air 02/10/23 03:30 02/10/23 07:38 02/10/23 07:39 Temperature 98.4 F Pulse Rate Pulse Rate [Left P ulse Oximeter] 92 Respiratory Rate 18 18 Blood Pressure [Ri ght Arm] 120/77 119/73 Pulse Oximetry 93 93 Oxygen Delivery Me thod Room Air Room Air 02/10/23 07:59 02/10/23 11:00 02/10/23 12:48 Temperature 98.5 F Pulse Rate 103 H Pulse Rate [Left P ulse Oximeter] 86 98 Respiratory Rate 16 Blood Pressure [Ri ght Arm] 99/65 111/69 Pulse Oximetry 92 Oxygen Delivery Nc thod Room Air 02/10/23 14:52 02/10/23 15:38 02/10/23 16:07 Temperature 98.5 F Pulse Rate 88 Pulse Rate [Left P ulse Oximeter] 93 Respiratory Rate 16 Blood Pressure [Ri ght Arm] 116/78 Pulse Oximetry 94 94 Oxygen Delivery Me thod Room Air Room Air Labs Labs: Laboratory Results - last 24 hr 02/09/23 02/09/23 02/09/23 05:15 17:04 18:59 WBC RBC Hgb Hct MCV MCH MCHC Plt Count VBG pH VBG pCO2 VBG pO2 VBG HCO3 Sodium Potassium 3.4 L Chloride Carbon Dioxide Anion Gap BUN Creatinine Estimated Creat Clear Estimated GFR Glucose Lactate 1.3 Calcium Phosphorus Magnesium Troponin I < 0.01 L C-Reactive Protein NT-Pro-B Natriuret Pep Lipase 54 Procalcitonin Stl C. diff Tox B Gene Negative Stl C. diff [id number] PRESUMPTIVE NEGATIVE Lab Acknowledgement Test Added 02/10/23 05:44 WBC 7.85 RBC 3.41 L Hgb 12.4 Hct 35.1 MCV 103 H MCH 36 H MCHC 35 Plt Count 342 VBG pH 7.499 H VBG pCO2 39 L VBG pO2 56.3 H VBG HCO3 31 H Sodium 128 L Potassium 3.6 Chloride 94 L Carbon Dioxide 27 Anion Gap 7 BUN 6 L Creatinine 0.3 L Estimated Creat Clear 41.73 Estimated GFR 111 Glucose 107 Lactate 0.9 Calcium 8.5 Phosphorus 2.9 Magnesium 1.6 Troponin I < 0.01 L C-Reactive Protein 17.9 H NT-Pro-B Natriuret Pep 4190 Lipase Procalcitonin 0.36 Stl C. diff Tox B Gene Stl C. diff [id number] Lab Acknowledgement
--- NOTE | 2023-02-10 17:54 | PC.NURSE ---
Shift Summary: Patient pleasant and cooperative. Up independently in room. Vitals stable and WNL. Patient urine appears concentrated this evening, encouraged fluid intake. Vitals stable and WNL. o2 sat >90% on RA. Using incentive spirometer independently. Appetite better today.
[2023-02-10] MEDS: METOPROLOL TARTRATE 50 MG TABLET 75 MG PO (21:38)
[2023-02-11] MEDS: ALBUTEROL SULFATE 2.5 MG/3 ML VIAL.NEB NEB ×3 (00:29→08:41)
[2023-02-11] MEDS: MELATONIN 3 MG TABLET PO (00:29)
[2023-02-11 03:00] VITALS: BP 127/88; PULSE 87; RESP 19; TEMP 37.2; O2SAT 92
[2023-02-11 07:00] VITALS: BP 119/87; PULSE 100; PULSE 90; RESP 16; RESP 18; TEMP 36.8; O2SAT 91; O2SAT 93
--- NOTE | 2023-02-11 07:48 | PC.NURSE ---
Patient pleasant, alert and oriented. Ambulates independently in room. PRN Melatonin given for sleep. Denies discomfort.
[2023-02-11] MEDS: SODIUM CHLORIDE 0.9 % (FLUSH) 10 ML SYRINGE 5 ML IVF (08:41)
[2023-02-11] MEDS: METOPROLOL TARTRATE 50 MG TABLET 75 MG PO (08:41)
[2023-02-11] MEDS: APIXABAN 5 MG TABLET PO (08:41)
[2023-02-11 09:00] LABS: Chloride* 92 mmol/L (96-114); Sodium* 128 mmol/L (135-149)
[2023-02-11 09:01] LABS: Potassium* 3.3 mmol/L (3.6-5.1)
[2023-02-11 09:03] LABS: Creatinine* 0.3 mg/dL (0.5-1.5); Estimated Glomerular Filt Rate 111 ml/min
[2023-02-11 09:04] LABS: Anion Gap 7 mEq/L (7-15); Blood Urea Nitrogen* 6 mg/dL (7-30); Calcium* 8.5 mg/dL (8.4-10.6); Carbon Dioxide* 29 mmol/L (20-32); Glucose* 105 mg/dL (60-115)
--- NOTE | 2023-02-11 13:24 | PM.DS1 ---
DS: Providers Provider Time Seen by Provider: 13:01 Date Seen: 02/11/23 Date of admission: 02/10/23 17:19 Primary care physician: Dot Braswell DO Admitting Clinician: Sagar Valera MD Consults: 02/09/23 16:43 Consult to Nutrition [CONS] Routine Comment: Reason for consult:: Miscellaneous Consult to Respiratory Therapy [CONS] Routine Comment: Reason(s) for RT Consult:: Consult Comment: mucous plugging; Aerobika device use Attending Physician on discharge: Kassy Munguia MD Date of Discharge: 02/11/23 DS: Diagnosis Discharge Diagnosis (1) Atrial fibrillation with RVR: Status: Acute Problem details: - uncertain of onset. - rate control with beta-nancy, schedule oral, as needed oral and IV - initiated apixaban anticoagulation therapy 02/09 - 02/10: Resting HR is about 103. I have increased oral metoprolol dose. Continue to monitor on telemetry. Goal resting heart rate is less than 100, goal active heart rate is less than 110. - 02/11: Heart rate consistently under 100 even with activity for the last 24 hours. Discharge home on oral metoprolol. Have patient follow-up the primary care provider this week. Discussed risks of bleeding with anticoagulation therapy. Discussed options of apixaban verses warfarin verses Xarelto. Patient would like to continue with apixaban for now. Patient's is on apixaban and she is concerned about the cost. Discussed potential side effects of beta blockers and risk of orthostatic symptoms. (2) Pneumonia: Status: Acute Problem details: - CTA from yesterday notes right lower lobe postobstructive pneumonia. Will need short-term outpatient follow-up for repeat chest imaging. - has been on ceftriaxone IV and azithromycin orally - Transitioned to cefpodoxime orally and azithromycin orally for discharge for a total of 5 days of antibiotics. (3) Mucus plugging of bronchi: Status: Acute Problem details: - underlying lesion is not excluded and will need short-term follow-up chest CT for re-evaluation (4) Alcohol abuse: Status: Acute Problem details: - Acknowledges drinking 2-3 brandies every 3-4 days - monitor for possible alcohol withdrawal and employ CIWA protocol if warranted - I have recommended abstinence in setting of need for anticoagulation for atrial fibrillation. Patient demonstrated understanding. (5) Pulmonary atelectasis: Status: Acute Problem details: - unchanged, concerning for possibility of underlying lesion, will need outpatient short-term follow-up chest imaging (6) Tobacco dependence: Status: Acute Problem details: - Has smoked 1 pack per cigarettes daily for several decades. I discussed tobacco cessation with patient. She noted that she had not had any cigarettes for 7 days and is hopeful to go home and quit cold turkey. Declined any prescriptions for tobacco cessation. DS: Summary Hospital Course Hospital Course: PCP: Will need short-term follow-up chest CT for re-evaluation due to mucus plugging with underlying lesion not excluded and possible postobstructive pneumonia. This is a 77-year-old female with history of tobacco dependence and alcohol use who presented with 2 week history of worsening dyspnea on exertion, weakness, decreased oral intake, decreased appetite. Upon presentation she was found to have atrial flutter with a rapid ventricular rate in the 140s. This was a new finding. Additionally she was noted to have pneumonia, underlying lesion cannot be excluded and there was possible postobstructive pneumonia. She was started on pulmonary toilet with nebs, ceftriaxone and azithromycin, and given metoprolol for rate control. She was also started on apixaban. She did well with these therapies and heart rate came under control under 100. She is discharged home today in improved and stable condition. I recommended smoking and alcohol cessation and patient demonstrated understanding and desire to quit. She declined any help with the these. Time spent discussing smoking cessation with patient: 3 to 10 minutes Time Spent with Patient Time attestation: Total time spent providing and/or coordinating discharge services: Exam Narrative: Exam Narrative: General: No acute distress. Awake, alert, oriented x3. No pallor. No jaundice. Oropharynx: Clear. Mucous membranes moist. Cardiovascular: Irregularly irregular. No murmurs, gallops, or rubs. Respiratory: Clear to auscultation bilaterally, no crackles or wheezes. Abdomen: Bowel sounds present. Soft, nondistended, nontender. Extremities: No pedal edema. Const: Vital Signs, click to edit/add: Vital Signs - 24 hr 02/10/23 14:52 02/10/23 15:38 02/10/23 16:07 Temperature 98.5 F Pulse Rate 88 Pulse Rate [Left P ulse Oximeter] 93 Respiratory Rate 16 Blood Pressure [Ri ght Arm] 116/78 Pulse Oximetry 94 94 Oxygen Delivery Me thod Room Air Room Air 02/10/23 19:00 02/10/23 23:00 02/10/23 23:00 Temperature 97.8 F 98.5 F Pulse Rate Pulse Rate [Left P ulse Oximeter] 96 89 Respiratory Rate 16 16 16 Blood Pressure [Ri ght Arm] 112/78 117/81 Pulse Oximetry 95 94 94 Oxygen Delivery Me thod Room Air Room Air Room Air 02/10/23 23:00 02/11/23 03:00 02/11/23 07:00 Temperature 98.9 F Pulse Rate 87 100 Pulse Rate [Left P ulse Oximeter] 87 Respiratory Rate 19 Blood Pressure [Ri ght Arm] 127/88 Pulse Oximetry 92 Oxygen Delivery Me thod Room Air 02/11/23 07:00 02/11/23 07:00 02/11/23 07:00 Temperature 98.2 F Pulse Rate Pulse Rate [Left P ulse Oximeter] 90 100 Respiratory Rate 16 18 Blood Pressure [Ri ght Arm] 119/87 Pulse Oximetry 91 93 Oxygen Delivery Me thod Room Air Room Air DS: Data Data Completed and Pending Completed studies during hospitalization: 02/09/2023 EKG: Atrial flutter with variable AV block with premature aberrantly conducted complexes, heart rate 140 beats per minute. Left axis deviation. Incomplete right bundle-branch block. Anteroseptal infarct, age undetermined. ST and T-wave abnormality, consider lateral ischemia. 02/09/2023 EKG: Atrial fibrillation with rapid ventricular response with premature ventricular or aberrantly conducted complexes. 102 beats per minute. Left axis deviation. Incomplete right bundle-branch block. Anterior lateral infarct, age undetermined. Prolonged QT. 02/09/2023 EKG: AFib with RVR. 102 beats per minute. Incomplete right bundle-branch block. Left anterior fascicular block. Anterolateral infarct, age undetermined. Ordering Physician: Deondre Rivera M.D. Date of Service: 02/09/23 Procedure(s): CT angio chest Accession Number(s): [id number] cc: Deondre Rivera M.D.; Dot Braswell D.O.~ For Patients: As a result of the Cures Act, medical imaging exams and procedure reports are released immediately into your electronic medical record. You may view this report before your referring provider. If you have questions, please contact your health care provider. INDICATION: New flutter, hypoxia. TECHNIQUE: CT chest PE was acquired with 95 cc Isovue 370 IV contrast. COMPARISON: None. FINDINGS: Heart and vasculature: Contrast opacification of the pulmonary arterial tree is adequate. No sign of pulmonary embolism. Heart size is normal. Thoracic aorta and pulmonary artery are normal in caliber. Lungs and pleura: Right lower lobe basilar mucous plugging with right basilar patchy ground-glass opacities. Left lower lobe collapse. No pleural effusions, pleural thickening, or pneumothorax. Lymph nodes/mediastinum: No mediastinal, hilar, or axillary adenopathy. Thyroid gland is unremarkable. Chest wall: No masses. Bilateral breast implants. Upper abdomen: No acute findings. Bones: Degenerative changes. T8 intraosseous hemangioma. IMPRESSION: 1. No evidence of pulmonary embolism. 2. Right lower lobe postobstructive pneumonia. 3. Left lower lobe collapse, which may be secondary to mucous plugging however underlying lesion is not excluded. Recommend short-term follow-up chest CT for re-evaluation. Please note that all CT scans at this facility use dose modulation, iterative reconstruction, and/or weight-based dosing when appropriate to reduce radiation dose to as low as reasonably achievable. Dictated by Oscar Freitas MD @ 02/09/2023 2:39:28 PM (Electronically Signed) Ordering Physician: Sagar Valera M.D. Date of Service: 02/10/23 Procedure(s): XR chest 2V Accession Number(s): [id number] cc: Sagar Valera M.D.; Dot Braswell D.O.~ For Patients: As a result of the 21st Century Cures Act, medical imaging exams and procedure reports are released immediately into your electronic medical record. You may view this report before your referring provider. If you have questions, please contact your health care provider. INDICATION: Follow-up abnormal prior imaging COMPARISON: Portions of a CT dated February 09, 2023 TECHNIQUE: Two views of the chest were acquired FINDINGS: TUBES AND LINES: None. HEART AND MEDIASTINUM: Enlarged heart unchanged appearance. LUNGS AND PLEURAL SPACES: Dense opacity at the left base representing left lower lobe atelectasis/collapse similar to the prior study. Right lower lobe consolidation likely representing pneumonia or aspiration.Similar to the prior exam. OSSEOUS STRUCTURES: Age-appropriate appearance. No acute focal finding. IMPRESSION: Dense opacity at the left base representing left lower lobe atelectasis/collapse, unchanged. Right lower lobe consolidation likely representing pneumonia, unchanged. Unchanged enlargement of the heart. Dictated by Jesus Palencia MD @ 02/10/2023 7:10:29 AM (Electronically Signed) Labs on day of discharge: Labs from last 24 hours 02/11/23 08:32 Sodium 128 L Potassium 3.3 L Chloride 92 L Carbon Dioxide 29 Anion Gap 7 BUN 6 L Creatinine 0.3 L Estimated Creat Clear 42.40 Estimated GFR 111 Glucose 105 Calcium 8.5 Discharge Plan Discharge Disposition: Home, Self-Care Date of Admission: 02/10/23 17:19 Attending Provider on Discharge: Kassy Munguia Primary Care Provider: Dot Braswell Condition: Stable Anticipated Discharge Date/Time: 02/11/23 13:18 Discharge Medications: New azithromycin 250 mg Tablet 250 mg PO Q24H Qty: 2 0RF Eliquis 5 mg Tablet 5 mg PO BID Qty: 60 0RF metoprolol tartrate 50 mg Tablet 75 mg PO BID Qty: 60 0RF cefpodoxime 200 mg tablet 200 mg PO BID Qty: 4 0RF Rx Instructions: must administer with a meal/food Start 1/8 am Discharge Orders: Discharge Order (Routine); Ordered 02/11/23 Ordered By: Kassy Munguia Patient Education: Metoprolol (By mouth), Azithromycin (By mouth), Cefpodoxime Proxetil (By mouth), Apixaban (By mouth), A-fib (Atrial Fibrillation) (DC), How to Stop Smoking (DC), Bacterial Pneumonia (DC) Additional Instructions: Wishes to establish PCP in [place] ([facility]) - 5-7 days Activity Level: No Restrictions Discharge Diet: Regular Follow Up Appointments: Dot Braswell DO [Primary Care Provider] - Forms: [facility] Info Instructions
--- NOTE | 2023-02-11 15:24 | PC.NURSE ---
Discharge Note: The patient discharged home this afternoon. All discharge information was given to the patient. IV was removed. Shwetha ORTA assisted with the discharge. Koki ORTA BSN
== END 2023-02-11 15:00 | disposition home or self-care (01) | DRG 308 ==
LOC: ED 15:36 → MEDSURG 16:22
PROVIDERS: Family Medicine; Admitting Provider Internal Medicine; Emergency Provider Family Medicine; PCP Family Medicine; Visit Provider Internal Medicine
DX: I48.20 Chronic atrial fibrillation, unspecified (principal); J18.9 Pneumonia, unspecified organism; J98.11 Atelectasis; Z68.1 Body mass index [BMI] 19.9 or less, adult; F17.210 Nicotine dependence, cigarettes, uncomplicated; J98.09 Other diseases of bronchus, not elsewhere classified; I48.92 Unspecified atrial flutter; F10.10 Alcohol abuse, uncomplicated; E87.6 Hypokalemia; Z85.3 Personal history of malignant neoplasm of breast; Z98.82 Breast implant status; Z96.641 Presence of right artificial hip joint; Z96.642 Presence of left artificial hip joint; R63.0 Anorexia; R53.1 Weakness; J98.4 Other disorders of lung
CPT/HCPCS: 36415; 71046; 71275; 80048; 80076; 82077; 82803; 83605; 83690; 83735; 83880; 84100; 84132; 84145; 84443; 84484; 85025; 85027; 85379; 86140; 87493; 87631; 93005; 93306; 94640; 94761; 99284; 99291; G0378; A9270; J0696; J3475; J3480; J7030; Q9967

== ENCOUNTER 2023-02-15 11:50 | Outpatient (CLI) | payer MEDICARE, SELFPAY | END 2023-02-15 11:51 | disposition home or self-care (01) | PROVIDERS: PCP Family Medicine; Visit Provider Family Medicine | DX: Z00.00 Encounter for general adult medical examination without abnormal findings (principal); E87.1 Hypo-osmolality and hyponatremia; F10.10 Alcohol abuse, uncomplicated; J18.9 Pneumonia, unspecified organism; I48.91 Unspecified atrial fibrillation; Z13.6 Encounter for screening for cardiovascular disorders | CPT/HCPCS: 80053; 80061; 84443 ==

== ENCOUNTER 2023-03-13 09:56 | Outpatient (CLI) | payer MEDICARE, SELFPAY ==
--- NOTE | 2023-03-13 10:00 | CRLHL7_ITS ---
For Patients: As a result of the Century Cures Act, medical imaging exams and procedure reports are released immediately into your electronic medical record. You may view this report before your referring provider. If you have questions, please contact your health care provider. INDICATION: Pneumonia TECHNIQUE: CT chest without contrast. COMPARISON: 02/09/[address] FINDINGS: Lungs and pleura: Improvement in left lower lobe consolidation with aeration of majority of the left lower lobe. Residual segmental and subsegmental consolidation. Significantly improved right lower lobe findings with resolution of most of the nodules. Majority of the bronchi are now patent. Mild residual bronchial wall thickening and interlobular septal thickening. Irregular focal consolidation in the right lower lobe image 79 series 3. Tiny bilateral pleural effusions. Heart and vasculature: Cardiomegaly. Dilated ascending aorta measuring 4 cm. Pulmonary artery also mildly dilated. Coronary artery calcifications. Lymph nodes/mediastinum: No mediastinal, hilar, or axillary adenopathy. Thyroid gland is normal. Chest wall: Bilateral breast implants. Upper abdomen: Normal. Bones: T8 hemangioma as before. IMPRESSION: Interval improvement in the bilateral lower lobe pneumonia with residual consolidation in both lung bases. Follow-up in 2-3 months recommended. Please note that all CT scans at this facility use dose modulation, iterative reconstruction, and/or weight-based dosing when appropriate to reduce radiation dose to as low as reasonably achievable. Dictated by Kris Rose MD @ 03/14/2023 11:35:48 AM (Electronically Signed)
== END 2023-03-13 09:57 | disposition home or self-care (01) ==
LOC: CT 09:57
PROVIDERS: PCP Family Medicine; Visit Provider Family Medicine
DX: J18.9 Pneumonia, unspecified organism (principal)
CPT/HCPCS: 71250

== ENCOUNTER 2023-03-21 06:04 | Day surgery (SDC) | payer MEDICARE, SELFPAY ==
[2023-03-21 06:15] VITALS: BP 156/95; PULSE 79; RESP 16; TEMP 36.6; O2SAT 97; BMI 17.4
[2023-03-21] MEDS: TETRACAINE 0.5% OPHTH 1 DROP EYE-LEFT ×2 (06:15→06:20)
[2023-03-21] MEDS: KETOROLAC OPHTH 0.5% 1 DROP EYE-LEFT ×2 (06:15→06:20)
[2023-03-21] MEDS: SODIUM CHLORIDE 0.9 % (FLUSH) 10 ML SYRINGE IVF (06:30)
[2023-03-21] MEDS: TETRACAINE 0.5% OPHTH 2 DROP EYE-LEFT (07:15)
[2023-03-21] MEDS: BALANCED SALT IRRIG SOLN 15 ML EYE-LEFT (07:20)
--- NOTE | 2023-03-21 07:49 | W.ANESCHARGE ---
Anesthesia Charges Start Date/Time Anesthesia Start Date: 03/21/23 Anesthesia Start Time: 07:11 Stop Date/Time Anesthesia Stop Date: 03/21/23 Anesthesia Stop Time: 07:50
[2023-03-21 07:50] VITALS: BP 154/99; PULSE 86; RESP 16; TEMP 36.3; O2SAT 95
--- NOTE | 2023-03-21 08:20 | SUR.PHASEII ---
The eye drops brought by the patient (Ketorolac and Prednisolone) are examined and I have determined they are labeled by the patient's pharmacy for this patient as prescribed by the surgeon. The bottles are intact, recently obtained and appear to be correct.
--- NOTE | 2023-03-21 08:36 | P.OPTPRC_ITS ---
Procedure Note Date of procedure: 03/21/23 Will [facility] bill your pro fee for this procedure?: Yes Procedure Description: SURGEON: Maria Elena Leary MD PREOPERATIVE DIAGNOSIS: Nuclear sclerotic cataract, left eye. POSTOPERATIVE DIAGNOSIS: Nuclear sclerotic cataract, left eye. NAME OF OPERATION: Phacoemulsification of cataract with posterior chamber intraocular lens implantation in the left eye. ANESTHESIA: Topical. ESTIMATED BLOOD LOSS: Less than 2 cc. COMPLICATIONS: None. PATHOLOGY SPECIMEN: None. INDICATIONS: See consult note for details. The risks, benefits and alternatives of the procedure were explained to the patient, who elected to proceed and signed informed consent to do so. PROCEDURE: The patient was brought to the pre-holding area where the left eye was identified as the operative eye. I placed my initials above this eye. The patient received eye drops consisting of 0.5% tetracaine, 1% tropicamide, 10% phenylephrine, and 0.5% ketorolac. The patient was then brought to the operating room where the left eye was again identified as the operative eye. The eye was prepped with Betadine and draped in the usual sterile ophthalmic fashion. A #15 super-sharp blade was used to create a paracentesis site. 1% non-preserved intracameral lidocaine was injected into the anterior chamber. Endocoat was injected into the anterior chamber. A 2.4 mm keratome was used to create a three-plane self-sealing incision 1 mm anterior to the temporal limbus. A cystotome was used to create an anterior capsular leaflet. The Utrata forceps were used to extend this to form a continuous curvilinear capsulorrhexis. Hydrodissection was performed. The cataract was removed with phacoemulsification using the [id number] technique. The irrigation and aspiration tip was used to remove the remaining cortex. Healon was injected into the capsular bag. An ESTELA ZCB00 intraocular lens of 18.5 diopters was injected into the capsular bag. The irrigation and aspiration tip was used to remove the remaining viscoelastic. Balanced salt solution on a cannula was used to hydrate the wound, and the wound was found to be watertight. The pupil was noted to be round. DISPOSITION: The patient was taken to the recovery room and discharged to home in stable condition. The patient was instructed to call me or go to the emergency department with any sudden change, including dramatic loss of vision, severe pain in the eye or eyebrow region, nausea, or vomiting. The patient will follow up in the clinic tomorrow morning.
--- NOTE | 2023-03-21 10:05 | W.ANESCHARGE ---
Anesthesia Charges Start Date/Time Anesthesia Start Date: 03/21/23 Anesthesia Start Time: 07:11 Stop Date/Time Anesthesia Stop Date: 03/21/23 Anesthesia Stop Time: 07:50 Summary Extremes of Age - Over 70 or under 1: MDA
== END 2023-03-21 08:21 | disposition home or self-care (01) ==
PROVIDERS: PCP Family Medicine; Visit Provider Ophthalmology
PROC: (CPT 66984; principal; 2023-03-21 06:15)
DX: H25.12 Age-related nuclear cataract, left eye (principal)
CPT/HCPCS: 66984; 00142; 99100; A9270; J2250; J3010; V2632

== ENCOUNTER 2023-04-04 06:11 | Day surgery (SDC) | payer MEDICARE, SELFPAY ==
[2023-04-04] MEDS: KETOROLAC OPHTH 0.5% 1 DROP EYE-RIGHT ×2 (06:30→06:35)
[2023-04-04] MEDS: TETRACAINE 0.5% OPHTH 1 DROP EYE-RIGHT ×2 (06:30→06:35)
[2023-04-04 06:33] VITALS: BMI 17.4
[2023-04-04 06:45] VITALS: BP 167/109; PULSE 78; RESP 16; TEMP 36.9; O2SAT 96
[2023-04-04] MEDS: SODIUM CHLORIDE 0.9 % (FLUSH) 10 ML SYRINGE IVF (06:47)
--- NOTE | 2023-04-04 06:47 | SUR.PREOP ---
The eye drops brought by the patient (Ketorolac, Prednisolone, and Ofloxacin) are examined and I have determined they are labeled by the patient's pharmacy for this patient as prescribed by the surgeon. The bottles are intact, recently obtained and appear to be correct.
[2023-04-04] MEDS: BALANCED SALT IRRIG SOLN 15 ML EYE-RIGHT (07:17)
[2023-04-04] MEDS: TETRACAINE 0.5% OPHTH 2 DROP EYE-RIGHT (07:17)
[2023-04-04 07:40] VITALS: BP 147/100; PULSE 76; RESP 16; TEMP 36.9; O2SAT 95
--- NOTE | 2023-04-04 07:43 | W.ANESCHARGE ---
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
--- NOTE | 2023-04-04 07:44 | P.OPTPRC_ITS ---
Procedure Note Date of procedure: 04/04/23 Will [facility] bill your pro fee for this procedure?: Yes Procedure Description: SURGEON: Maria Elena Leary MD PREOPERATIVE DIAGNOSIS: Nuclear sclerotic cataract, right eye. POSTOPERATIVE DIAGNOSIS: Nuclear sclerotic cataract, right eye. NAME OF OPERATION: Phacoemulsification of cataract with posterior chamber intraocular lens implantation in the right eye. ANESTHESIA: Topical. ESTIMATED BLOOD LOSS: Less than 2 cc. COMPLICATIONS: None. PATHOLOGY SPECIMEN: None. INDICATIONS: See consult note for details. The risks, benefits and alternatives of the procedure were explained to the patient, who elected to proceed and signed informed consent to do so. PROCEDURE: The patient was brought to the pre-holding area where the right eye was identified as the operative eye. I placed my initials above this eye. The patient received eye drops consisting of 0.5% tetracaine, 1% tropicamide, 10% phenylephrine, and 0.5% ketorolac. The patient was then brought to the operating room where the right eye was again identified as the operative eye. The eye was prepped with Betadine and draped in the usual sterile ophthalmic fashion. A #15 super-sharp blade was used to create a paracentesis site. 1% non-preserved intracameral lidocaine was injected into the anterior chamber. Endocoat was injected into the anterior chamber. A 2.4 mm keratome was used to create a three-plane self-sealing incision 1 mm anterior to the temporal limbus. A cystotome was used to create an anterior capsular leaflet. The Utrata forceps were used to extend this to form a continuous curvilinear capsulorrhexis. Hydrodissection was performed. The cataract was removed with phacoemulsification using the [id number] technique. The irrigation and aspiration tip was used to remove the remaining cortex. Healon was injected into the capsular bag. An ESTELA ZCB00 intraocular lens of 19.5 diopters was injected into the capsular bag. The irrigation and aspiration tip was used to remove the remaining viscoelastic. Balanced salt solution on a cannula was used to hydrate the wound, and the wound was found to be watertight. The pupil was noted to be round. DISPOSITION: The patient was taken to the recovery room and discharged to home in stable condition. The patient was instructed to call me or go to the emergency department with any sudden change, including dramatic loss of vision, severe pain in the eye or eyebrow region, nausea, or vomiting. The patient will follow up in the clinic tomorrow morning.
--- NOTE | 2023-04-04 10:59 | W.ANESCHARGE ---
Anesthesia Charges Start Date/Time Anesthesia Start Date: 04/04/23 Anesthesia Start Time: 07:08 Stop Date/Time Anesthesia Stop Date: 04/04/23 Anesthesia Stop Time: 07:41 Summary Extremes of Age - Over 70 or under 1: MDA
== END 2023-04-04 08:07 | disposition home or self-care (01) ==
PROVIDERS: PCP Family Medicine; Visit Provider Ophthalmology
PROC: (CPT 66984; principal; 2023-04-04 06:15)
DX: H25.11 Age-related nuclear cataract, right eye (principal)
CPT/HCPCS: 66984; 00142; 99100; A9270; J2250; J3010; V2632

== ENCOUNTER 2023-06-11 10:43 | Outpatient (CLI) | payer MEDICARE, SELFPAY ==
--- NOTE | 2023-06-11 11:00 | CT_ITS ---
Patient: MARIAJOSE LOW Facility:?[facility] Patient ID:?[id number] Site Patient ID:?[id number]. Site :?[id number] Study:?CT-Chest WITHOUT-06/11/2023 11:29:58 AM Ordering Physician:?DR. NAVARRO Final Report: INDICATION: Pneumonia. Three-month follow up. TECHNIQUE: Volumetric helical scanning of the thorax was performed without IV contrast material. Coronal and sagittal reconstructions were obtained. COMPARISON: Chest CT of 03/13/2023 FINDINGS: Previously demonstrated bilateral lower lobe base pneumonias appear to have resolved with atelectasis in the left lower lobe base with left-sided volume loss. No acute infiltrate is demonstrated. There is no significant airway abnormality. No pleural effusion is demonstrated. There is no mediastinal or hilar lymphadenopathy. Postop changes of bilateral mastectomies with reconstruction are again demonstrated. There is unchanged mild cardiomegaly. Calcified coronary arterial plaque is again demonstrated. Images of the upper abdomen are unremarkable. IMPRESSION: 1. Previously demonstrated bilateral lower lobe pneumonias resolved with persistent left lower lobe base atelectasis. 2. Post bilateral mastectomies with reconstruction. 3. Stable mild cardiomegaly. Please note that all CT scans at this facility use dose modulation, iterative reconstruction, and/or weight-based dosing when appropriate to reduce radiation dose to as low as reasonably achievable. Dictated by Jose Jacome MD @ 06/11/2023 4:05:40 PM Signed by:?Jose Jacome MD @06/11/2023 4:05:40 PM (Electronic Signature)
== END 2023-06-11 10:44 | disposition home or self-care (01) ==
LOC: CT 10:44
PROVIDERS: PCP Family Medicine; Visit Provider Family Medicine
DX: J18.9 Pneumonia, unspecified organism (principal); I51.7 Cardiomegaly
CPT/HCPCS: 71250

== ENCOUNTER 2023-06-28 11:30 | Emergency (ER) | payer MEDICARE, SELFPAY ==
[2023-06-28] VITALS (14 sets, daily range): BP systolic 155–166; BP diastolic 96–117; PULSE 70–97; RESP 18–20; TEMP 36.5; O2SAT 92–99; BMI 17.7
--- NOTE | 2023-06-28 11:31 | ED_ITS ---
HPI - General Adult General Time Seen by Provider: 11:31 Date Seen: 06/28/23 Chief complaint: Dizziness/Vertigo Stated complaint: Dizziness Time Seen by Provider: 06/28/23 11:31 Source: patient, RN notes reviewed and old records reviewed Mode of arrival: ambulatory Limitations: no limitations History of Present Illness HPI narrative: This 77yo female is coming in with concern of head pressure, dizziness. She notes that yesterday mid morning she started to note that her head was having pressure behind her eyes and into her temples bilaterally, feels like pressure but does not feel like a headache, not that bad as a headache. She typically doesn't get headaches that frequently. No fevers, chills. She thought it was maybe her sinuses starting to bother her but has no drainage or congestion. With this, she feels dizziness, not like getting up too fast but more like she could pass out. No chest pain, has underlying atrial fibrillation and is anticoagulated. No spinning sensation. Has no visual changes, no spots in vision, no blackening, no double vision. She has maybe felt a bit more short of breath. Maybe will feel slightly imbalanced when first getting up but otherwise no ongoing incoordination. No missed doses of Eliquis. Looking in her records, she was hospitalized in February with hypokalemia, atrial fibrillation with RVR. Anticoagulation was started and rate control was achieved with metoprolol. Her echo during the hospitalization showed reduced function at 39%. She was also found to have pneumonia. She did have a follow- up chest CT which did show resolution. Related Data Previous Rx's ?Medication ?Instructions ?Recorded apixaban 5 mg tablet (Eliquis) 5 mg PO BID #180 tabs 02/15/23 metoprolol tartrate 50 mg tablet 75 mg (1.5 x 50 mg) PO BID #270 05/29/23 tabs Allergies Allergy/AdvReac Type Severity Reaction Status Date / Time No Known Drug Allergies Allergy Verified 06/28/23 11:41 Review of Systems Status of ROS: Reports: 6 or more systems reviewed and unremarkable except as noted in History and below [facility] Medical History Hyponatremia ?E87.1 - Hypo-osmolality and hyponatremia (ICD-10) Atrial fibrillation ?I48.91 - Unspecified atrial fibrillation (ICD-10) Atrial fibrillation with RVR (02/09/23) ?I48.91 - Unspecified atrial fibrillation (ICD-10) Pneumonia (02/2023) ?J18.9 - Pneumonia, unspecified organism (ICD-10) Eczema ?L30.9 - Dermatitis, unspecified (ICD-10) Alcohol abuse (02/2023) ?F10.10 - Alcohol abuse, uncomplicated (ICD-10) Tobacco dependence ?F17.200 - Nicotine dependence, unspecified, uncomplicated (ICD-10) History of malignant neoplasm of breast ?Z85.3 - Personal history of malignant neoplasm of breast (ICD-10) History of cervical dysplasia ?Z87.410 - Personal history of cervical dysplasia (ICD-10) Encounter for pre-operative examination ?Z01.818 - Encounter for other preprocedural examination (ICD-10) Encounter for counseling regarding advance directives (02/12/18) ?Z71.89 - Other specified counseling (ICD-10) Breast cancer ?C50.919 - Malignant neoplasm of unspecified site of unspecified female breast (ICD-10) Surgical History H/O total hip arthroplasty ?Z96.649 - Presence of unspecified artificial hip joint (ICD-10) H/O bilateral breast implants (~2000) ?Z98.82 - Breast implant status (ICD-10) History of total hysterectomy with bilateral salpingo-oophorectomy (BSO) (~1998) ?Z90.710 - Acquired absence of both cervix and uterus (ICD-10) ?Z90.722 - Acquired absence of ovaries, 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) ?Z90.79 - Acquired absence of other genital organ(s) (ICD-10) History of total right hip replacement (~2006) ?Z96.641 - Presence of right artificial hip joint (ICD-10) History of total left hip replacement (12/13/16) ?Z96.642 - Presence of left artificial hip joint (ICD-10) H/O left mastectomy (1999) ?Z90.12 - Acquired absence of left breast and nipple (ICD-10) Family History Brother Skin cancer Son Diabetes Social History Narrative: , retired from [employer], 2 adult children Does not exercise Ex-smoker quit a week ago, over 25 pack years Drinks 10 drinks a week, was advised to cut down What is your current living situation?: I presently have a place to live Problems where you live: no known problems Problems where you live details: N/A In the past 12 months, utilities in danger of being shut off: no In past 12 months, lack of transportation kept you from medical appts, meetings, work, or getting things needed for daily living: no In the past 12 mos, have been you worried that your food would run out before you had money to buy more?: never true In the past 12 mos, the food you bought just didn't last and you didn't have money to buy more?: never true Smoking Status: Former smoker Do you use any of these nicotine containing products: None How often do you have a drink containing alcohol: 2-3 times a week Alcohol type: hard liquor How many standard drinks containing alcohol do you have on a typical day: 1 or 2 How often do you have six or more drinks on one occasion: Never AUDIT-C Alcohol total score: 3 Non-prescribed substance use: denies use Caffeine: Yes How often does anyone, including family, friends and others, physically hurt you : never How often does anyone, including family, friends and others, insult or talk down to you: never How often does anyone, including family, friends and others, threaten you with harm: never How often does anyone, including family, friends and others, scream or curse at you: never Are you using contraception or practicing any form of control: No service: No Exam Const: Vital Signs, click to edit/add: Vital Signs - 24 hr 06/28/23 11:37 06/28/23 11:44 06/28/23 11:46 Temperature 97.7 F Pulse Rate 79 Pulse Rate [Right Pulse Oximeter] 97 Pulse Rate [orthos tatic lying Pulse Oximeter] Pulse Rate [orthos tatic sitting] Pulse Rate [orthos tatic standing] Respiratory Rate 18 Blood Pressure Blood Pressure [Ri ght Upper Arm] 163/112 H Blood Pressure [or thostatic lying Ri ght Arm] Blood Pressure [or thostatic sitting] Blood Pressure [or thostatic standing ] Pulse Oximetry 96 93 97 Oxygen Delivery Me thod Room Air 06/28/23 12:06 06/28/23 12:07 06/28/23 12:15 Temperature Pulse Rate 82 83 84 Pulse Rate [Right Pulse Oximeter] Pulse Rate [orthos tatic lying Pulse Oximeter] Pulse Rate [orthos tatic sitting] Pulse Rate [orthos tatic standing] Respiratory Rate 20 Blood Pressure 155/113 H Blood Pressure [Ri ght Upper Arm] Blood Pressure [or thostatic lying Ri ght Arm] Blood Pressure [or thostatic sitting] Blood Pressure [or thostatic standing ] Pulse Oximetry 97 99 96 Oxygen Delivery Me thod 06/28/23 12:30 06/28/23 12:32 06/28/23 12:45 Temperature Pulse Rate 82 80 Pulse Rate [Right Pulse Oximeter] Pulse Rate [orthos tatic lying Pulse Oximeter] 70 Pulse Rate [orthos tatic sitting] 73 Pulse Rate [orthos tatic standing] 82 Respiratory Rate Blood Pressure 162/96 H Blood Pressure [Ri ght Upper Arm] Blood Pressure [or thostatic lying Ri ght Arm] 162/96 H Blood Pressure [or thostatic sitting] 164/117 H Blood Pressure [or thostatic standing ] 166/112 H Pulse Oximetry 98 97 Oxygen Delivery Me thod 06/28/23 12:46 06/28/23 13:00 06/28/23 13:02 Temperature Pulse Rate 76 78 76 Pulse Rate [Right Pulse Oximeter] Pulse Rate [orthos tatic lying Pulse Oximeter] Pulse Rate [orthos tatic sitting] Pulse Rate [orthos tatic standing] Respiratory Rate Blood Pressure 160/102 H Blood Pressure [Ri ght Upper Arm] Blood Pressure [or thostatic lying Ri ght Arm] Blood Pressure [or thostatic sitting] Blood Pressure [or thostatic standing ] Pulse Oximetry 92 95 95 Oxygen Delivery Me thod 06/28/23 13:15 Temperature Pulse Rate 73 Pulse Rate [Right Pulse Oximeter] Pulse Rate [orthos tatic lying Pulse Oximeter] Pulse Rate [orthos tatic sitting] Pulse Rate [orthos tatic standing] Respiratory Rate Blood Pressure Blood Pressure [Ri ght Upper Arm] Blood Pressure [or thostatic lying Ri ght Arm] Blood Pressure [or thostatic sitting] Blood Pressure [or thostatic standing ] Pulse Oximetry 96 Oxygen Delivery Me thod This 77-year-old female is ambulatory into the ED of her own accord. She is alert, interactive, no apparent distress. Pupils are equal round, conjugate gaze, extraocular muscles intact. Sclera are clear. Symmetrical facial function, normal light touch sensation. Speech is normal. Oropharynx normal mucosa, dentition in good repair. Neck is supple, no adenopathy, no thyromegaly masses or nodules. No jugular venous distention noted. Lungs are clear, good air entry, no wheezing or crackles, patient sits up easily. CV sounds mostly regular, do not hear any murmur, normal S1-S2, no S3-S4. Abdomen is soft, nontender, nondistended, no organomegaly. She has no lower extremity edema. She has no arm drift, normal finger to nose. Strength is 5/5 and symmetric throughout upper extremities as well as lower extremities. No tremors noted. Skin visualized without any concerning rash. Documenting provider has reviewed patient's vital signs: yes Course Course ED Course: Patient is going to have a head CT, will see the maxillary and frontal sinuses on this. This certainly could be a headache, doesn't seem consistent with concern of cerebrovascular disease. There is no vertiginous complaint with this, feels like she is more going to pass out-type feeling with this. Does have underlying atrial fibrillation, consider cardiac causes, including CHF. Initial monitor and EKG show rate-controlled atrial fibrillation. Continue on pulse oximeter and cardiac monitoring to watch for oxygenation and rhythm changes. Will get full compliment of labs. Will get portable chest x-ray. Reevaluation(s) Time of Reevaluation #1: 13:29 Reevaluation #1: Reviewed with patient her head CT findings, chest x-ray appears normal without pneumonia or congestive heart failure. Labs are reassuring. ProBNP is likely up due to her chronic atrial fibrillation. She has been rate controlled here, she shows no evidence of orthostatic hypotension. Did ask further about her feeling of instability in her gait initially when she gets up, this is been goi ng on for quite some time and did proceed her symptoms yesterday. Vital Signs Vital signs: Initial Vital Signs Temperature 97.7 F 06/28/23 11:37 Temperature Source Temporal Artery Scan 06/28/23 11:37 Pulse Rate 97 06/28/23 11:37 Respiratory Rate 18 06/28/23 11:37 Blood Pressure 163/112 H 06/28/23 11:37 Blood Pressure Mean 129 H 06/28/23 11:37 Blood Pressure Position Sitting 06/28/23 11:37 Pulse Oximetry 96 06/28/23 11:37 Oxygen Delivery Method Room Air 06/28/23 11:37 Vital Signs Temperature 97.7 F 06/28/23 11:37 Pulse Rate 97 06/28/23 11:37 Respiratory Rate 18 06/28/23 11:37 Blood Pressure 163/112 H 06/28/23 11:37 Pulse Oximetry 96 06/28/23 11:37 Oxygen Delivery Method Room Air 06/28/23 11:37 Temperature 97.7 F 06/28/23 11:37 Pulse Rate 73 06/28/23 13:15 Respiratory Rate 20 06/28/23 12:07 Blood Pressure 160/102 H 06/28/23 13:02 Pulse Oximetry 96 06/28/23 13:15 Oxygen Delivery Method Room Air 06/28/23 11:37 Medical Decision Making Lab Data Lab results reviewed: Yes I reviewed the patient's lab results Labs: Lab Results 06/28/23 Range/Units 11:56 WBC 5.60 (4.50-11.00) K/uL RBC 4.40 (4.00-5.20) m/uL Hgb 14.1 (12.0-16.0) gm/dL Hct 42.9 (33.0-51.0) % MCV 98 (80-100) fL MCH 32 (26-34) pg MCHC 33 (32-36) gm/dL RDW Coeff of Nacho 13.1 (11.5-15.5) % Plt Count 196 (140-440) K/uL Neut % (Auto) 64.3 (42.0-72.0) % Lymph % (Auto) 22.0 (20-44) % Waller % (Auto) 11.6 H (0.0-11.0) % Eos % (Auto) 1.6 (0.0-7.0) % Baso % (Auto) 0.5 (0.0-3.0) % Neut # (Auto) 3.60 (1.7-7.0) K/uL Lymph # (Auto) 1.23 (0.90-2.90) K/uL Waller # (Auto) 0.60 (0.00-0.90) K/UL Eos # (Auto) 0.09 (0.00-0.50) K/uL Baso # (Auto) 0.03 (0.00-0.30) K/uL Abs Immat Gran (auto) 0.00 (0.00-0.30) K/uL Imm/Tot Granulo (auto) 0.0 % Sodium 134 L (135-149) mmol/L Potassium 4.0 (3.6-5.1) mmol/L Chloride 98 (96-114) mmol/L Carbon Dioxide 31 (20-32) mmol/L Anion Gap 5 L (7-15) mEq/L BUN 14 (7-30) mg/dL Creatinine 0.6 (0.5-1.5) mg/dL Estimated Creat Clear 41.77 Estimated GFR 94 ml/min Glucose 134 H (60-115) mg/dL Lactate 1.5 (0.5-1.9) mmol/L Calcium 9.4 (8.4-10.6) mg/dL Magnesium 1.6 (1.5-2.6) mg/dL Total Bilirubin 1.9 H (0.1-1.5) mg/dL AST 29 (12-35) U/L ALT 16 (4-35) U/L Alkaline Phosphatase 84 (40-150) U/L Troponin I < 0.01 L (0.01-0.04) ng/mL C-Reactive Protein 0.6 (0.5-1.0) mg/dL NT-Pro-B Natriuret Pep 3500 pg/mL Total Protein 7.6 (6.0-8.3) g/dL Albumin 4.7 (3.3-5.0) g/dL Imaging Data CT scan - head: Attestation: I have reviewed the pertinent imaging results. Radiologist's impression: Patient: MARIAJOSE LOW Facility:?[facility] Patient ID:?[id number] Site Patient ID:?[id number]. Site :?[id number] Study:?CT-Head WITHOUT-06/28/2023 12:16:08 PM Ordering Physician:?Magalis Kennedy Final Report: TECHNIQUE: Multiplanar CT examination of the head was performed without the use of intravenous contrast. INDICATION: Dizziness, vertigo. COMPARISON: None. FINDINGS: No loss of malone-white differentiation to suggest recent territorial infarct. No intracranial hemorrhage, abnormal extra-axial fluid collection, hydrocephalus or midline shift. The ventricles and cerebral sulci are prominent in caliber, compatible with mild generalized parenchymal volume loss. There is patchy ill-defined hypoattenuation in the periventricular white matter diffusely, nonspecific but likely represents chronic microvascular ischemic changes. There are atherosclerotic calcifications of the intracranial ICA segments bilaterally the basal cisterns are patent. The paranasal sinuses and mastoid air cells remain clear. Status post bilateral lens removal. The orbits and calvarium are unremarkable. The cerebellar tonsils are normal position. IMPRESSION: 1. No acute intracranial findings. 2. Mild generalized parenchymal volume loss with chronic microvascular changes. Please note that all CT scans at this facility use dose modulation, iterative reconstruction, and/or weight-based dosing when appropriate to reduce radiation dose to as low as reasonably achievable. Dictated by Avtar Lawton MD @ 06/28/2023 12:40:17 PM (Electronic Signature) Chest x-ray: Attestation: I have reviewed the pertinent imaging results. Radiologist's impression: Patient: MARIAJOSE LOW Facility:?[facility] Patient ID:?[id number] Site Patient ID:?[id number]. Site :?[id number] Study:?XRay-Chest 1 VIEW-06/28/2023 12:08:16 PM Ordering Physician:?Magalis Kennedy Final Report: INDICATION: Dizziness. Atrial fibrillation. TECHNIQUE: Chest 1 views. COMPARISON: February 10, 2023. FINDINGS: Cardiovasculature and mediastinum: Heart size is normal. Unremarkable mediastinum. Lungs and pleural spaces: Lungs are clear. No sign of infiltrate or mass. No sign of pleural effusion. No pneumothorax. Bones and soft tissues: No significant findings. IMPRESSION: No acute or significant findings. Dictated by Fabián Mejía MD @ 06/28/2023 12:37:58 PM (Electronic Signature) ECG Data Attestation: I personally reviewed and interpreted this ECG as follows: (Atrial fibrillation, 88 beats per minute. Incomplete right bundle branch block. Q- waves anterior precordial leads.) Prior ECG tracings: available for review (No significant change.) Discharge Plan Discharge Clinical Impression: Pressure in head, Dizziness Patient Disposition: Home, Self-Care Condition: Stable Instructions: Dizziness (ED) Additional Instructions: Please schedule follow-up with your primary care provider within the next week for recheck. Monitor blood pressures outpatient, work on getting blood pressure to goal if it remains elevated. Dizziness can be a difficult symptom to diagnose and treat. In the interim, if you feel you are worsening, develops new or concerning symptoms, please seek re-evaluation. Activity Level: Activity as Tolerated Discharge Diet: Heart Healthy (2 gm sodium, low fat) Prescriptions: No Action Eliquis 5 mg tablet 5 mg PO BID Qty: 180 3RF metoprolol tartrate 50 mg tablet 75 mg PO BID Qty: 270 2RF Follow Up/Referrals: Esha Diaz MD [Primary Care Provider] - Stand Alone Forms: [employer] Info Instructions
--- NOTE | 2023-06-28 11:44 | CT_ITS ---
Patient: MARIAJOSE LOW Facility:?[facility] Patient ID:?[id number] Site Patient ID:?[id number]. Site :?1945 Study:?CT-Head WITHOUT-06/28/2023 12:16:08 PM Ordering Physician:Winter Kennedy Final Report: TECHNIQUE: Multiplanar CT examination of the head was performed without the use of intravenous contrast. INDICATION: Dizziness, vertigo. COMPARISON: None. FINDINGS: No loss of malone-white differentiation to suggest recent territorial infarct. No intracranial hemorrhage, abnormal extra-axial fluid collection, hydrocephalus or midline shift. The ventricles and cerebral sulci are prominent in caliber, compatible with mild generalized parenchymal volume loss. There is patchy ill-defined hypoattenuation in the periventricular white matter diffusely, nonspecific but likely represents chronic microvascular ischemic changes. There are atherosclerotic calcifications of the intracranial ICA segments bilaterally the basal cisterns are patent. The paranasal sinuses and mastoid air cells remain clear. Status post bilateral lens removal. The orbits and calvarium are unremarkable. The cerebellar tonsils are normal position. IMPRESSION: 1. No acute intracranial findings. 2. Mild generalized parenchymal volume loss with chronic microvascular changes. Please note that all CT scans at this facility use dose modulation, iterative reconstruction, and/or weight-based dosing when appropriate to reduce radiation dose to as low as reasonably achievable. Dictated by Avtar Lawton MD @ 06/28/2023 12:40:17 PM Signed by:?Avtar Lawton MD @06/28/2023 12:40:17 PM (Electronic Signature)
--- NOTE | 2023-06-28 11:47 | XR_ITS ---
Patient: MARIAJOSE LOW Facility:?[facility] Patient ID:?[id number] Site Patient ID:?[id number]. Site :?[id number] Study:?XRay-Chest 1 VIEW-06/28/2023 12:08:16 PM Ordering Physician:Winter Kennedy Final Report: INDICATION: Dizziness. Atrial fibrillation. TECHNIQUE: Chest 1 views. COMPARISON: February 10, 2023. FINDINGS: Cardiovasculature and mediastinum: Heart size is normal. Unremarkable mediastinum. Lungs and pleural spaces: Lungs are clear. No sign of infiltrate or mass. No sign of pleural effusion. No pneumothorax. Bones and soft tissues: No significant findings. IMPRESSION: No acute or significant findings. Dictated by Fabián Mejía MD @ 06/28/2023 12:37:58 PM Signed by:?Fabián Mejía MD @06/28/2023 12:37:58 PM (Electronic Signature)
[2023-06-28 12:03] LABS: Basophils Absolute Auto 0.03 K/uL (0.00-0.30); Basophils Percent Auto 0.5 % (0.0-3.0); Eosinophils Absolute Auto 0.09 K/uL (0.00-0.50); Eosinophils Percent Auto 1.6 % (0.0-7.0); Hematocrit 42.9 % (33.0-51.0); Hemoglobin* 14.1 gm/dL (12.0-16.0); Lymphocytes Absolute Auto 1.23 K/uL (0.90-2.90); Mean Corpuscular HGB Conc 33 gm/dL (32-36); Mean Corpuscular Hemoglobin 32 pg (26-34); Mean Corpuscular Volume 98 fL (80-100); Monocytes Percent Auto 11.6 % (0.0-11.0); Neutrophils Percent Auto 64.3 % (42.0-72.0); Platelet Count* 196 K/uL (140-440); RDW Coefficient of Variation % 13.1 % (11.5-15.5)
[2023-06-28 12:04] LABS: Lactate* 1.5 mmol/L (0.5-1.9)
[2023-06-28 12:05] LABS: Slide Review Reflex No
[2023-06-28 12:20] LABS: Albumin* 4.7 g/dL (3.3-5.0); Chloride* 98 mmol/L (96-114); Sodium* 134 mmol/L (135-149)
[2023-06-28 12:22] LABS: Creatinine* 0.6 mg/dL (0.5-1.5); Est. Creatinine Clearance* 41.77; Estimated Glomerular Filt Rate 94 ml/min; Magnesium* 1.6 mg/dL (1.5-2.6)
[2023-06-28 12:23] LABS: Alkaline Phosphatase* 84 U/L (40-150); Anion Gap 5 mEq/L (7-15); Aspartate Amino Transferase* 29 U/L (12-35); Bilirubin Total* 1.9 mg/dL (0.1-1.5); Blood Urea Nitrogen* 14 mg/dL (7-30); Carbon Dioxide* 31 mmol/L (20-32); Total Protein* 7.6 g/dL (6.0-8.3)
[2023-06-28 12:24] LABS: Alanine Aminotransferase* 16 U/L (4-35); Calcium* 9.4 mg/dL (8.4-10.6); Glucose* 134 mg/dL (60-115)
[2023-06-28 12:26] LABS: C Reactive Protein* 0.6 mg/dL (0.5-1.0)
[2023-06-28 12:34] LABS: NT Pro B Type NatriureticPept* 3500 pg/mL
[2023-06-28 12:36] LABS: Troponin I* < 0.01 ng/mL (0.01-0.04)
== END 2023-06-28 13:43 | disposition home or self-care (01) ==
PROVIDERS: Emergency Provider Family Medicine; PCP Family Medicine
DX: R42 Dizziness and giddiness (principal)
CPT/HCPCS: 36415; 70450; 71045; 80053; 83605; 83735; 83880; 84484; 85025; 86140; 93005; 94761; 99284; 99285

== ENCOUNTER 2023-08-06 11:33 | Outpatient (CLI) | payer MEDICARE, SELFPAY | END 2023-08-06 11:34 | disposition home or self-care (01) | LOC: NFLDREF 08-08 12:01 | PROVIDERS: PCP Family Medicine; Referring Provider Family Medicine; Visit Provider Family Medicine | DX: I10 Essential (primary) hypertension (principal); R35.0 Frequency of micturition | CPT/HCPCS: 87086; 87186 ==

== ENCOUNTER 2023-08-14 10:00 | Outpatient (CLI) | payer MEDICARE, SELFPAY | END 2023-08-14 10:01 | disposition home or self-care (01) | LOC: NFLDREF 08-15 08:50 | PROVIDERS: PCP Family Medicine; Referring Provider Family Medicine; Visit Provider Family Medicine | DX: I10 Essential (primary) hypertension (principal) | CPT/HCPCS: 80048 ==

== ENCOUNTER 2023-10-17 19:51 | Observation (INO) | payer MEDICARE, SELFPAY ==
[2023-10-17 15:48] VITALS: BP 107/75; RESP 18; TEMP 37.1; O2SAT 97; BMI 19.0
[2023-10-17 19:05] VITALS: BP 110/73; BP 92/75; BP 99/75; PULSE 100; PULSE 102; PULSE 96
[2023-10-17 19:28] VITALS: BP 110/73; PULSE 107; RESP 18; TEMP 36.3; O2SAT 92
--- NOTE | 2023-10-17 19:59 | P.IMHP_ITS ---
Hospitalist- H&P: HPI History of Present Illness Date Seen: 10/17/23 Chief complaint: acute kidney injury Narrative: Monae Leach is a 78 year old female with past medical history of hypertension, AFib on apixaban, hyponatremia who presents as a direct admit from urgent care unit [facility] complaining of dizziness, decreased appetite and was not able to take food orally due to loss of appetite. Patient states that she felt like she would almost pass out, was feeling dizzy but she did not lose consciousness and fell down. She did not hit her head on the floor. Currently she does not have any headache, visual changes, chest pain, shortness of breath, abdominal pain, nausea vomiting. She only feels that she has burning sensation on urination. She mentioned that couple months ago she had a UTI. Upon charting it seems her urine at that time grew Citrobacter freundii that was sensitive to ceftriaxone. Upon admission patient was tachycardic in the low 110s. Orthostatics were positive. Mild leukocytosis at 11.75, serum creatinine 1.3 (baseline is 0.6). Review of Systems Status of ROS: Reports: 10 or more systems reviewed and unremarkable except as noted in History and below [facility] Medical History (Updated 10/17/23 @ 20:26 by Marlin Benson MD) Hyponatremia ?E87.1 - Hypo-osmolality and hyponatremia (ICD-10) Atrial fibrillation ?I48.91 - Unspecified atrial fibrillation (ICD-10) Atrial fibrillation with RVR (02/09/23) ?I48.91 - Unspecified atrial fibrillation (ICD-10) Pneumonia (02/2023) ?J18.9 - Pneumonia, unspecified organism (ICD-10) Eczema ?L30.9 - Dermatitis, unspecified (ICD-10) Alcohol abuse (02/2023) ?F10.10 - Alcohol abuse, uncomplicated (ICD-10) Tobacco dependence ?F17.200 - Nicotine dependence, unspecified, uncomplicated (ICD-10) History of malignant neoplasm of breast ?Z85.3 - Personal history of malignant neoplasm of breast (ICD-10) History of cervical dysplasia ?Z87.410 - Personal history of cervical dysplasia (ICD-10) Encounter for pre-operative examination ?Z01.818 - Encounter for other preprocedural examination (ICD-10) Encounter for counseling regarding advance directives (02/12/18) ?Z71.89 - Other specified counseling (ICD-10) Breast cancer ?C50.919 - Malignant neoplasm of unspecified site of unspecified female breast (ICD-10) Surgical History H/O total hip arthroplasty ?Z96.649 - Presence of unspecified artificial hip joint (ICD-10) H/O bilateral breast implants (~2000) ?Z98.82 - Breast implant status (ICD-10) History of total hysterectomy with bilateral salpingo-oophorectomy (BSO) (~1998) ?Z90.710 - Acquired absence of both cervix and uterus (ICD-10) ?Z90.722 - Acquired absence of ovaries, 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) ?Z90.79 - Acquired absence of other genital organ(s) (ICD-10) History of total right hip replacement (~2006) ?Z96.641 - Presence of right artificial hip joint (ICD-10) History of total left hip replacement (12/13/16) ?Z96.642 - Presence of left artificial hip joint (ICD-10) H/O left mastectomy (1999) ?Z90.12 - Acquired absence of left breast and nipple (ICD-10) Family History Brother Skin cancer Son Diabetes Social History Narrative: , retired from [employer], 2 adult children Does not exercise Ex-smoker quit a week ago, over 25 pack years Drinks 10 drinks a week, was advised to cut down What is your current living situation?: I presently have a place to live Problems where you live: no known problems Problems where you live details: none In the past 12 months, utilities in danger of being shut off: no In past 12 months, lack of transportation kept you from medical appts, meetings, work, or getting things needed for daily living: no In the past 12 mos, have been you worried that your food would run out before you had money to buy more?: never true In the past 12 mos, the food you bought just didn't last and you didn't have money to buy more?: never true Highest level of school completed/degree received: high school graduate Smoking Status: Former smoker Do you use any of these nicotine containing products: None How often do you have a drink containing alcohol: 2-3 times a week Alcohol type: hard liquor How many standard drinks containing alcohol do you have on a typical day: 1 or 2 How often do you have six or more drinks on one occasion: Never AUDIT-C Alcohol total score: 3 Non-prescribed substance use: denies use Caffeine: Yes How often does anyone, including family, friends and others, physically hurt you : never How often does anyone, including family, friends and others, insult or talk down to you: never How often does anyone, including family, friends and others, threaten you with harm: never How often does anyone, including family, friends and others, scream or curse at you: never Little interest or pleasure in doing things: not at all Feeling down, depressed, or hopeless: not at all Are you using contraception or practicing any form of control: No service: No Meds Home Medications and Allergies Allergies Allergy/AdvReac Type Severity Reaction Status Date / Time No Known Drug Allergies Allergy Verified 10/17/23 12:28 Exam Narrative: Exam Narrative: Physical exam GENERAL: Comfortable, no acute distress. HEAD AND NECK: Atraumatic, normocephalic CARDIOVASCULAR: Tachycardia. Positive orthostatics. Normal S1, S2. No murmurs. RESPIRATORY: Clear to auscultation B/L. Good air entry B/L. No wheezes or rhonchi. GASTROINTESTINAL: Not distended, not tender to palpation. NEUROLOGY: Alert, awake, oriented X 3. Normal speech. No focal weakness. PSYCH: Normal mood, normal affect. Const: Vital Signs, click to edit/add: Vital Signs - 24 hr 10/17/23 15:48 10/17/23 19:05 10/17/23 19:28 Temperature 98.7 F 97.3 F L Pulse Rate [Pulse Oximeter] 107 H Pulse Rate [orthos tatic lying Pulse Oximeter] 100 Pulse Rate [orthos tatic sitting Puls e Oximeter] 102 H Pulse Rate [orthos tatic standing Pul se Oximeter] 96 Respiratory Rate 18 18 Blood Pressure [Ri ght Arm] 107/75 110/73 Blood Pressure [or thostatic lying Ri ght Arm] 110/73 Blood Pressure [or thostatic sitting] 99/75 Blood Pressure [or thostatic standing Right Arm] 92/75 Pulse Oximetry 97 92 Oxygen Delivery Me thod Room Air Room Air Hospitalist - H&P: Result Labs Labs: Specimen: [id number] COMP Collected: 08/06/23 Received: 08/06/23 Source: Urine CC Sp Descrip: Sub Dr: Esha Diaz M.D. Other Dr: Procedure Result Site Urine Culture* Final ML Organism 1 Citrobacter freundii Ur [place] Count >100,000 CFU/ml C freundii [facility] RX --------- --- Cefazolin >=64 R Cefepime <=1 S Cefoxitin 16 R Ceftazidime <=1 S Ceftriaxone <=1 S Ciprofloxacin <=0.25 S Ertapenem <=0.5 S Gentamicin <=1 S Imipenem <=0.25 S Levofloxacin <=0.12 S Nitrofurantoin <=16 S Tobramycin <=1 S Assessment and Plan Assessment and plan (1) Postural dizziness with presyncope: Problem comment: -positive orthostatics -no other signs and symptoms that suggest cardiac presyncope. -will give 2 L bolus of IV fluids and monitor. -ordered telemetry. Status: Acute (2) UTI (urinary tract infection): Problem comment: -urinalysis positive patient is symptomatic -patient denies frequent UTIs but couple of months ago she had a UTI -Upon charting, her urine at that time grew Citrobacter freundii that was sensitive to ceftriaxone. -started ceftriaxone 2g iv q24 hr. Status: Acute (3) CLEMENTE (acute kidney injury): Problem comment: -likely prerenal due to decreased oral intake -serum creatinine 1.3 (baseline is 0.6). -IV fluids given -repeat labs Status: Acute (4) Decreased oral intake: Problem comment: -treat underlying cause likely UTI -IV fluids bolus ordered Status: Acute (5) Hypertension, essential: Problem comment: -home medications lisinopril 5 mg q.day and metoprolol tartrate 75 mg p.o. b.i.d. -will hold lisinopril due to CLEMENTE Status: Acute (6) Atrial fibrillation: Problem comment: -resume metoprolol tartrate -resume home anticoagulation, apixaban 5 mg b.i.d. Status: Acute (7) Hyponatremia: Problem comment: -upon chart reviewing patient has had intermittent hyponatremia. -will repeat labs and monitor if patient is still hyponatremic after fluid challenge with 2 L of normal saline, if patient's sodium level gets worse after normal saline then that would suggest SIADH. Status: Acute (8) Anticoagulated: Problem comment: On Apixaban for afib, resumed Status: Acute Plan As above Total Time Spent Total Time Spent: Time spent: Today I spent 75 minutes seeing the patient, discussing the patient with ER staff, reviewing Expanse and EPIC notes/diagnostics, discussing the care plan with our care time that includes pharmacy, RT, custodial and documenting my impressions and plan in the medical record.
[2023-10-17 20:19] VITALS: O2SAT 97
[2023-10-17 20:30] VITALS: PULSE 80
[2023-10-17 20:53] LABS: C.Difficile Negative (Negative); CDIFFEPI 027 PRESUMPTIVE NEGATIVE (Negative)
[2023-10-17] MEDS: METOPROLOL TARTRATE 50 MG TABLET 75 MG PO (21:27)
[2023-10-17] MEDS: APIXABAN 5 MG TABLET PO (21:29)
[2023-10-17] MEDS: SODIUM CHLORIDE 0.9 % (FLUSH) 10 ML SYRINGE 5 ML IVF (21:50)
[2023-10-17] MEDS: cefTRIAXone 2 GM in 0.9 % SODIUM CHLORIDE Mini-bag 100 ML IVPB (21:50)
[2023-10-17] MEDS: 0.9 % SODIUM CHLORIDE 1000 ml 1,000 ML IV ×2 (21:51→23:07)
--- NOTE | 2023-10-17 22:40 | PC.NURSE ---
End of Shift ([id number]): Patient pleasant and cooperative, A&O. VSS, afebrile. Patient had one large incontinent BM this shift. Left arm restriction with band in place. Denies pain this shift. SBA to bathroom.
[2023-10-17 23:56] VITALS: BP 122/82; PULSE 87; RESP 16; TEMP 36.9; O2SAT 96
[2023-10-18 01:34] VITALS: PULSE 90
[2023-10-18 02:31] VITALS: BP 122/89; PULSE 94; RESP 16; TEMP 37.3; O2SAT 92
--- NOTE | 2023-10-18 06:35 | PC.NURSE ---
End of shift [id number]: A&O pleasant and cooperative. VSS. Pt reports some dizziness when up but able to ambulate to bathroom w/ SBA. Denies pain. Bed alarm in place. Pt needs to be reminded to use call light.
[2023-10-18 06:51] LABS: Lactate* 0.7 mmol/L (0.5-1.9)
[2023-10-18 06:58] VITALS: PULSE 88
[2023-10-18 07:07] LABS: Basophils Absolute Auto 0.01 K/uL (0.00-0.30); Basophils Percent Auto 0.1 % (0.0-3.0); Eosinophils Absolute Auto 0.01 K/uL (0.00-0.50); Eosinophils Percent Auto 0.1 % (0.0-7.0); Hematocrit 37.7 % (33.0-51.0); Hemoglobin* 12.9 gm/dL (12.0-16.0); Immature Granulocytes Abs Auto 0.11 K/uL (0.00-0.30); Lymphocytes Percent Auto 7.1 % (20-44); Mean Corpuscular HGB Conc 34 gm/dL (32-36); Mean Corpuscular Hemoglobin 33 pg (26-34); Mean Corpuscular Volume 97 fL (80-100); Monocytes Percent Auto 11.5 % (0.0-11.0); Neutrophils Percent Auto 80.2 % (42.0-72.0); Platelet Count* 241 K/uL (140-440); RDW Coefficient of Variation % 12.5 % (11.5-15.5); Red Blood Count 3.89 m/uL (4.00-5.20); White Blood Count* 10.66 K/uL (4.50-11.00)
[2023-10-18 07:20] LABS: Albumin* 3.2 g/dL (3.3-5.0); Chloride* 99 mmol/L (96-114); Sodium* 129 mmol/L (135-149)
[2023-10-18 07:23] LABS: Alanine Aminotransferase* 10 U/L (4-35); Alkaline Phosphatase* 88 U/L (40-150); Anion Gap 10 mEq/L (7-15); Aspartate Amino Transferase* 19 U/L (12-35); Bilirubin Total* 0.8 mg/dL (0.1-1.5); Blood Urea Nitrogen* 30 mg/dL (7-30); Calcium* 8.6 mg/dL (8.4-10.6); Carbon Dioxide* 20 mmol/L (20-32); Creatinine* 0.8 mg/dL (0.5-1.5); Est. Creatinine Clearance* 46.05; Estimated Glomerular Filt Rate 76 ml/min; Glucose* 113 mg/dL (60-115); Magnesium* 2.1 mg/dL (1.5-2.6); Total Protein* 5.9 g/dL (6.0-8.3)
[2023-10-18 07:29] LABS: Slide Review Reflex No
[2023-10-18 07:30] VITALS: BP 124/82; PULSE 82; RESP 16; TEMP 36.8; O2SAT 95
[2023-10-18] MEDS: POTASSIUM BICARB 25 MEQ EFFERVESCENT TAB PO ×2 (08:15→09:26)
[2023-10-18] MEDS: lisinopriL 5 MG TABLET PO (08:15)
[2023-10-18] MEDS: METOPROLOL TARTRATE 50 MG TABLET 75 MG PO (08:15)
[2023-10-18] MEDS: APIXABAN 5 MG TABLET PO (08:16)
[2023-10-18] MEDS: SODIUM CHLORIDE 0.9 % (FLUSH) 10 ML SYRINGE 5 ML IVF (08:16)
--- NOTE | 2023-10-18 10:41 | P.DS_ITS ---
DS: Providers Provider Date Seen: 10/18/23 Date of admission: 10/17/23 19:51 Primary care physician: Esha Diaz MD Admitting Clinician: Marlin Benson MD Consults: 10/17/23 20:21 Consult to Physical Therapy [CONS] Routine Comment: Reason(s) for PT Consult:: Recent Falls Any Restrictions?:: No Restrictions Attending Physician on discharge: ANGELA Pimentel, AND[facility] Date of Discharge: 10/18/23 DS: Diagnosis Discharge Diagnosis (1) Postural dizziness with presyncope: Status: Resolved Problem details: Positive orthostatics noted on admission. No other signs and symptoms that suggest cardiac presyncope. Intermittently hypotensive, systolic 90-100, which improved and stabilized prior to discharge. Received 2 L bolus of IV fluid. Telemetry unremarkable. Assessed by Physical therapy without recommendations for ongoing therapies. Symptoms resolved prior to discharge. Suspected in setting of acute hyponatremia, cystitis, dehydration. (2) UTI (urinary tract infection): Status: Acute Problem details: Urinalysis is positive and patient is symptomatic with dysuria, generalized weakness. Urine culture pending at time of discharge. -patient denies frequent UTIs but couple of months ago she had a UTI which at that time grew Citrobacter freundii that was sensitive to ceftriaxone. Initiated on ceftriaxone on admission, transitioned to oral levofloxacin x3 days based on previous urine culture - cephalosporins not pansensitive so will avoid these. (3) CLEMENTE (acute kidney injury): Status: Resolved Problem details: likely prerenal due to decreased oral intake. Serum creatinine 1.3 (baseline is 0.6). Improved to 0.8 following IVF. (4) Decreased oral intake: Status: Resolved Problem details: Treat underlying cause likely UTI, received IVF bolus. Appetite returned to normal prior to discharge. (5) Hypertension, essential: Status: Acute Problem details: -home medications lisinopril 5 mg q.day and metoprolol tartrate 75 mg p.o. b.i.d. -will hold lisinopril due to CLEMENTE - resumed at discharge (6) Atrial fibrillation: Status: Acute Problem details: -resume metoprolol tartrate -resume home anticoagulation, apixaban 5 mg b.i.d. (7) Hyponatremia: Status: Acute Problem details: -upon chart reviewing patient has had intermittent hyponatremia, 128-134. 126 on admission. -will repeat labs and monitor if patient is still hyponatremic after fluid challenge with 2 L of normal saline, if patient's sodium level gets worse after normal saline then that would suggest SIADH. Sodium 129 on day of discharge. Outpatient follow-up with PCP. (8) Anticoagulated: Status: Acute Problem details: On Apixaban for afib, resumed (9) Hypokalemia: Status: Acute Problem details: Potassium 3.0 on day of discharge. Previously 3.7. Replaced with potassium bicarbonate 50 mEq prior to discharge, as well as continued replacement with 20 mEq b.i.d. x5 days. Outpatient follow-up with PCP for recheck. (10) Alcohol use: Status: Acute Problem details: Patient relates drinking 2 brandies daily, every other day. DS: Summary Hospital Course Hospital Course: [age] year old female was admitted to the medical floor for weakness, dizziness, hyponatremia in setting of acute UTI and decreased oral intake. Course of care and details as noted above. Symptomatically improved overnight. Awaiting urine culture results. Discharged on oral antibiotics, pending further results. Ongoing potassium replacement. Outpatient follow-up with PCP. Admits to drinking 2 brandies daily, every other day, which may be contributing chronically to chronic mild hyponatremia, electrolyte abnormalities, dizziness, weakness, poor oral intake. Remainder of chronic medical comorbidities were monitored and managed with home medications. Status at Discharge Functional status at discharge: independent ambulation Overall status at discharge: patient is back to baseline Time Spent with Patient Time attestation: Total time spent providing and/or coordinating discharge services: Time spent: Greater than 30 minutes Exam Narrative: Exam Narrative: PHYSICAL EXAM General: Pleasant, conversant, NAD Cardiovascular: IRRR Pulmonary: No dyspnea Neurological: Alert, answering questions appropriately Skin: Warm, dry. Const: Vital Signs, click to edit/add: Vital Signs - 24 hr 10/17/23 15:48 10/17/23 19:05 10/17/23 19:28 Temperature 98.7 F 97.3 F L Pulse Rate Pulse Rate [Pulse Oximeter] 107 H Pulse Rate [orthos tatic lying Pulse Oximeter] 100 Pulse Rate [orthos tatic sitting Puls e Oximeter] 102 H Pulse Rate [orthos tatic standing Pul se Oximeter] 96 Respiratory Rate 18 18 Blood Pressure [Ri ght Arm] 107/75 110/73 Blood Pressure [or thostatic lying Ri ght Arm] 110/73 Blood Pressure [or thostatic sitting] 99/75 Blood Pressure [or thostatic standing Right Arm] 92/75 Pulse Oximetry 97 92 Oxygen Delivery Me thod Room Air Room Air 10/17/23 20:19 10/17/23 20:30 10/17/23 23:56 Temperature 98.4 F Pulse Rate 80 Pulse Rate [Pulse Oximeter] 87 Pulse Rate [orthos tatic lying Pulse Oximeter] Pulse Rate [orthos tatic sitting Puls e Oximeter] Pulse Rate [orthos tatic standing Pul se Oximeter] Respiratory Rate 16 Blood Pressure [Ri ght Arm] 122/82 Blood Pressure [or thostatic lying Ri ght Arm] Blood Pressure [or thostatic sitting] Blood Pressure [or thostatic standing Right Arm] Pulse Oximetry 97 96 Oxygen Delivery Nh thod Room Air Room Air 10/18/23 01:34 10/18/23 02:31 10/18/23 06:58 Temperature 99.1 F Pulse Rate 90 88 Pulse Rate [Pulse Oximeter] 94 Pulse Rate [orthos tatic lying Pulse Oximeter] Pulse Rate [orthos tatic sitting Puls e Oximeter] Pulse Rate [orthos tatic standing Pul se Oximeter] Respiratory Rate 16 Blood Pressure [Ri ght Arm] 122/89 Blood Pressure [or thostatic lying Ri ght Arm] Blood Pressure [or thostatic sitting] Blood Pressure [or thostatic standing Right Arm] Pulse Oximetry 92 Oxygen Delivery Nh thod Room Air 10/18/23 07:30 10/18/23 07:30 Temperature 98.2 F Pulse Rate Pulse Rate [Pulse Oximeter] 82 82 Pulse Rate [orthos tatic lying Pulse Oximeter] Pulse Rate [orthos tatic sitting Puls e Oximeter] Pulse Rate [orthos tatic standing Pul se Oximeter] Respiratory Rate 16 16 Blood Pressure [Ri ght Arm] 124/82 Blood Pressure [or thostatic lying Ri ght Arm] Blood Pressure [or thostatic sitting] Blood Pressure [or thostatic standing Right Arm] Pulse Oximetry 95 Oxygen Delivery Nh thod Room Air DS: Data Data Completed and Pending Labs on day of discharge: Labs from last 24 hours 10/18/23 10/17/23 06:43 17:42 WBC 10.66 RBC 3.89 L Hgb 12.9 Hct 37.7 MCV 97 MCH 33 MCHC 34 RDW Coeff of Nacho 12.5 Plt Count 241 Neut % (Auto) 80.2 H Lymph % (Auto) 7.1 L Evangeline % (Auto) 11.5 H Eos % (Auto) 0.1 Baso % (Auto) 0.1 Neut # (Auto) 8.50 H Lymph # (Auto) 0.80 L Evangeline # (Auto) 1.20 H Eos # (Auto) 0.01 Baso # (Auto) 0.01 Abs Immat Gran (auto) 0.11 Imm/Tot Granulo (auto) 1.0 Sodium 129 L Potassium 3.0 L Chloride 99 Carbon Dioxide 20 Anion Gap 10 BUN 30 Creatinine 0.8 Estimated Creat Clear 46.05 Estimated GFR 76 Glucose 113 Lactate 0.7 Calcium 8.6 Magnesium 2.1 Total Bilirubin 0.8 AST 19 ALT 10 Alkaline Phosphatase 88 Total Protein 5.9 L Albumin 3.2 L Stl C. diff Tox B Gene Negative Stl C. diff [id number] PRESUMPTIVE NEGATIVE Discharge Plan Discharge Disposition: Home, Self-Care Date of Admission: 10/17/23 19:51 Attending Provider on Discharge: Shannan Dover Primary Care Provider: Esha Diaz Condition: Improved Anticipated Discharge Date/Time: 10/18/23 10:37 Discharge Medications: New potassium chloride 20 mEq tablet extended release 20 meq PO BIDWM 5 Days Qty: 10 0RF levofloxacin 250 mg tablet 250 mg PO DAILY 3 Days Qty: 3 0RF Continued Eliquis 5 mg tablet 5 mg PO BID Qty: 180 3RF lisinopril 5 mg tablet 5 mg PO DAILY metoprolol tartrate 50 mg tablet 75 mg PO BID Qty: 270 2RF Discharge Orders: Discharge Order (Routine); Ordered 10/18/23 Ordered By: Shannan Dover Patient Education: Hyponatremia (GEN), Urinary Tract Infection in Older Adults (GEN) Activity Level: Activity as Tolerated Discharge Diet: Regular Follow Up Appointments: Esha Diaz MD [Primary Care Provider] - 10/24/23 10:45 am ([facility] for follow-up, and recheck BMP.) Forms: [facility] Info Instructions
[2023-10-18 11:47] VITALS: BP 109/70; PULSE 79; RESP 16; TEMP 36.9; O2SAT 93
--- NOTE | 2023-10-18 12:34 | PC.NURSE ---
discharge. pt is alert x4 but is distracted easily, alert x4. pt said she drinking everyother day. no pain this am. dizziness is improved. still weak. she is up with SBA, PT worked with her, Bed alarm in place. Pt needs to be reminded to use call light. SL was d/c intact. mindi over over discharge with pt. she got a w/c ride out,
== END 2023-10-18 12:37 | disposition home or self-care (01) ==
PROVIDERS: Admitting Provider Student in an Organized Health Care Education/Training Program; PCP Family Medicine; Visit Provider Physician Assistant
DX: R42 Dizziness and giddiness (principal); R55 Syncope and collapse; N39.0 Urinary tract infection, site not specified; N17.9 Acute kidney failure, unspecified; I10 Essential (primary) hypertension; I48.91 Unspecified atrial fibrillation; Z79.02 Long term (current) use of antithrombotics/antiplatelets; E87.1 Hypo-osmolality and hyponatremia; E87.6 Hypokalemia; F10.90 Alcohol use, unspecified, uncomplicated
CPT/HCPCS: 36415; 80053; 83605; 83735; 85025; 87086; 87186; 87493; 96361; 96365; 97112; 97116; 97162; G0378; A9270; G0379; J0696; J7030

== ENCOUNTER 2023-10-22 09:56 | Outpatient (CLI) | payer MEDICARE, SELFPAY | END 2023-10-22 09:57 | disposition home or self-care (01) | LOC: NFLDREF 10-25 11:39 | PROVIDERS: PCP Family Medicine; Referring Provider Family Medicine; Visit Provider Family Medicine | DX: I10 Essential (primary) hypertension (principal) | CPT/HCPCS: 80053 ==

== ENCOUNTER 2023-10-24 14:25 | Outpatient (CLI) | payer MEDICARE, SELFPAY ==
--- NOTE | 2023-10-24 14:30 | CRLHL7_ITS ---
For Patients: As a result of the Century Cures Act, medical imaging exams and procedure reports are released immediately into your electronic medical record. You may view this report before your referring provider. If you have questions, please contact your health care provider. INDICATION: LOW BP, DULL HUGGINS, DIZZINESS COMPARISON: 06/28/2023 TECHNIQUE: A CT volumetric acquisition was performed of the brain without IV contrast. Please note that all CT scans at this facility use dose modulation, iterative reconstruction, and/or weight-based dosing when appropriate to reduce radiation dose to as low as reasonably achievable. FINDINGS: Mild chronic white matter changes noted. No hydrocephalus or midline shift. No intracranial mass or hemorrhage. Visualized sinuses are clear. IMPRESSION: No acute findings. No significant change. Please note that all CT scans at this facility use dose modulation, iterative reconstruction, and/or weight-based dosing when appropriate to reduce radiation dose to as low as reasonably achievable. Dictated by Deondre Ortiz MD @ 10/25/2023 12:34:42 PM (Electronically Signed)
== END 2023-10-24 14:26 | disposition home or self-care (01) ==
LOC: CT 14:25
PROVIDERS: PCP Family Medicine; Visit Provider Family Medicine
DX: R03.1 Nonspecific low blood-pressure reading (principal); R42 Dizziness and giddiness; R51.9 Headache, unspecified; E87.6 Hypokalemia; R35.0 Frequency of micturition; Z79.01 Long term (current) use of anticoagulants; Z87.820 Personal history of traumatic brain injury
CPT/HCPCS: 70450; 80048; 87086

== ENCOUNTER 2024-01-10 12:35 | Outpatient (CLI) | payer MEDICARE, SELFPAY ==
--- NOTE | 2024-01-10 13:00 | CRLHL7_ITS ---
For Patients: As a result of the Century Cures Act, medical imaging exams and procedure reports are released immediately into your electronic medical record. You may view this report before your referring provider. If you have questions, please contact your health care provider. DXA BONE MINERAL DENSITY STUDY Reason for exam: Asymptomatic menopausal state. History of breast cancer. Current height (in): 70. Weight (lb): 135. Menopause age: 52. Ethnicity: White. 1. Have you had a previous hip or vertebral fracture? No. 2. Have you had any fractures during your adult life which did not result from significant trauma (e.g., auto accident)? No. 3. Did either of your parents have a hip fracture? No. 4. Do you smoke? No. 5. Have you ever taken Glucocorticoids? No. 6. Do you have rheumatoid arthritis? No. 7. Do you have secondary osteoporosis? No. 8. Do you drink 3 or more alcoholic drinks per day? No. 9. Are you being treated for osteoporosis? No. 10. Have you ever taken any of the following medications: Actonel, Evista, Fosamax, Miacalcin, Reclast, Boniva, Forteo, HRT (i.e. estrogen/hormone therapy), Protelos, Prolia, Vitamin D, Calcium, other ??? please specify. ANSWER: Yes, vitamin D. 11. Do you have any of the following medical conditions: Anorexia or bulimia, asthma or emphysema, end stage renal disease, hyperparathyroidism, any seizure disorders, cancer, inflammatory bowel diseases, hysterectomy, other ??? please specify. ANSWER: Yes, breast cancer and hysterectomy. 12. What was your maximum height (inches)? 70. 13. Do you perform weight bearing exercise regularly? No. 14. Do you regularly consume dairy products? Yes. 15. Do you drink caffeinated beverages? Yes. 16. At what age did your period start? 16. 17. Are you premenopausal? No. 18. How many full term pregnancies have you had? 2. 19. Have you ever missed your period for more than 6 months in a row (not including or menopause)? No. TECHNIQUE: Bone mineral density study was performed using the [employer]. FINDINGS: The results of the study expressed as bone mineral density (BMD) are as follows: Lumbar spine L1 to L3: BMD: 1.073 g/cm2. T-score: 0.5. Z-score: 2.9. Right 33%: BMD: 0.597 g/cm2. T-score: -1.6. Z-score: 1.1. Left 33%: BMD: 0.581 g/cm2. T-score: -1.9. Z-score: 0.8. IMPRESSION: Osteopenia. *Comparison exams done prior to 07/2019 were performed on different unit, [employer]. Bernadette Bro M.D. Diagnostic Radiologist [email or web address] NIRANJAN/sp SP/Dictated by: Bernadette Bro MD @ 01/11/2024 8:59:00 AM (Electronically Signed)
== END 2024-01-10 12:36 | disposition home or self-care (01) ==
LOC: RAD 12:36
PROVIDERS: PCP Family Medicine; Visit Provider Family Medicine
DX: Z78.0 Asymptomatic menopausal state (principal); M85.89 Other specified disorders of bone density and structure, multiple sites
CPT/HCPCS: 77080

== ENCOUNTER 2024-08-04 13:27 | Outpatient (CLI) | payer MEDICARE, SELFPAY | END 2024-08-04 13:28 | disposition home or self-care (01) | LOC: NFLDREF 08-08 08:05 | PROVIDERS: PCP Family Medicine; Referring Provider Family Medicine; Visit Provider Nurse Practitioner Family | DX: R30.0 Dysuria (principal); N39.0 Urinary tract infection, site not specified; M54.9 Dorsalgia, unspecified | CPT/HCPCS: 87086 ==

== ENCOUNTER 2024-08-07 10:52 | Outpatient (CLI) | payer MEDICARE, SELFPAY | END 2024-08-07 10:53 | disposition home or self-care (01) | PROVIDERS: PCP Family Medicine; Visit Provider Nurse Practitioner Family | DX: I10 Essential (primary) hypertension (principal); R06.02 Shortness of breath; I48.19 Other persistent atrial fibrillation | CPT/HCPCS: 80053; 83880 ==

== ENCOUNTER 2024-08-22 09:17 | Outpatient (CLI) | payer MEDICARE, SELFPAY | END 2024-08-22 09:18 | disposition home or self-care (01) | LOC: NFLDREF 08-24 06:08 | PROVIDERS: PCP Family Medicine; Referring Provider Family Medicine; Visit Provider Nurse Practitioner Family | DX: N39.0 Urinary tract infection, site not specified (principal); I48.19 Other persistent atrial fibrillation | CPT/HCPCS: 87086 ==

== ENCOUNTER 2024-10-23 10:50 | Outpatient (CLI) | payer MEDICARE, SELFPAY | END 2024-10-23 10:51 | disposition home or self-care (01) | LOC: NFLDREF 10-29 10:57 | PROVIDERS: PCP Nurse Practitioner Family; Referring Provider Nurse Practitioner Family; Visit Provider Nurse Practitioner Family | DX: R35.89 Other polyuria (principal); N30.90 Cystitis, unspecified without hematuria | CPT/HCPCS: 87086 ==

== ENCOUNTER 2024-11-24 08:04 | Outpatient (CLI) | payer MEDICARE, SELFPAY | END 2024-11-24 08:05 | disposition home or self-care (01) | LOC: NFLDREF 11-26 09:26 | PROVIDERS: PCP Nurse Practitioner Family; Referring Provider Nurse Practitioner Family; Visit Provider Family Medicine | DX: E78.5 Hyperlipidemia, unspecified (principal); I10 Essential (primary) hypertension | CPT/HCPCS: 80053; 80061 ==

== ENCOUNTER 2024-11-27 13:23 | Outpatient (CLI) | payer MEDICARE, SELFPAY | END 2024-11-27 13:24 | disposition home or self-care (01) | LOC: NFLDREF 11-29 19:04 | PROVIDERS: PCP Nurse Practitioner Family; Referring Provider Nurse Practitioner Family; Visit Provider Nurse Practitioner Family | DX: N39.0 Urinary tract infection, site not specified (principal) | CPT/HCPCS: 87086 ==